=== PATIENT | female | born 1940 | race Caucasian/White ===

== ENCOUNTER 2016-12-06 08:50 | Day surgery (SDC) | payer MEDICARE, OTHER ==
[2016-12-06] MEDS ORDERED: PHENYLEPHRINE 2.5% OPHTH 2 ML DROPS ONE (08:55)
[2016-12-06] MEDS ORDERED: LACTATED RINGERS 1,000 ML IV ONE (09:18)
[2016-12-06] MEDS ORDERED: CYCLOPENTOLATE 1% OPHTH DROPS 2 ML OPTH ONE (09:26)
[2016-12-06] MEDS ORDERED: PROPARACAINE 0.5% OPHTH DROPS 15 ML OPTH ONE ×2 (09:26→10:21)
[2016-12-06] MEDS ORDERED: PHENYLEPHRINE 2.5% OPHTH 2 ML DROPS OPTH ONE (09:27)
[2016-12-06] MEDS ORDERED: KETOROLAC 0.45% OPHTH DROPS OPTH ONE (09:28)
[2016-12-06] MEDS ORDERED: BRIMONIDINE 0.2% OPHTH DROPS 5 ML OPTH ONE (10:20)
[2016-12-06] MEDS ORDERED: EPINEPHrine 1 MG/ML AMP IVP ONE (10:21)
[2016-12-06] MEDS ORDERED: TIMOLOL 0.5% OPHTH DROPS OPTH ONE (10:21)
[2016-12-06] MEDS ORDERED: BSS/LIDOCAINE/EPINEPHRINE 1 ML SYRINGE IO ONE ×2 (10:21)
[2016-12-06] MEDS ORDERED: CHONDR SULF/HYALURONATE SYRINGE IO ONE (10:21)
[2016-12-06] MEDS ORDERED: TRIAMCIN/MOXIFLOX/VANCO 1 ML VIAL IO ONE ×2 (10:22)
[2016-12-06] MEDS ORDERED: MIDAZOLAM 2 MG/2 ML VIAL IVP ONE (10:25)
[2016-12-06 11:11] VITALS: BP 121/51
--- NOTE | 2016-12-08 03:13 | OPERATIVE REPORT ---
DATE OF SURGERY: 12/06/2016 00:00:00 PREOPERATIVE DIAGNOSIS: Visually significant cataract, left eye. This was her first cataract surgery. POSTOPERATIVE DIAGNOSIS: Visually significant cataract, left eye. This was her first cataract surgery . PROCEDURE: Phacoemulsification and posterior chamber intraocular lens implant, left eye. SURGEON: Tio Sparks MD ANESTHESIA: Monitored anesthesia care. COMPLICATIONS: None. OPERATIVE INDICATIONS: This is a 76-year-old woman with progressive vision loss in the left eye due t o 3+ nuclear sclerotic and 1 to 2+ posterior subcapsular cataract. Best corrected visual acuity was 20/40, with glare to 2200 in the left eye. Indications for surgery were overall decrease in vision, difficulty seeing words and closed captions on TV, difficulty driving in low light or at night, diffi culty driving at night because of headlights from other vehicles. She was consented at length concer shane the risks and benefits of cataract surgery, after which she expressed a desire to proceed with s urgery. OPERATIVE PROCEDURE: The patient was taken into operating room #2 and placed under monitored anesthes ia care. A surgical time-out was conducted, confirming correct the patient, correct procedure, and co rrect surgical site. She was given topical anesthesia and then prepped and draped in the usual steril e fashion. The eye was entered at the 6- and 3-o'clock positions. Intracameral shugarcaine was injected into the anterior chamber, followed by Viscoat. A continuous tear curvilinear capsulorrhexis was performed. T he nucleus was hydrodissected and phacoemulsified. The cortex was evacuated using automated infusion aspiration. Provisc was injected into the capsular bag and a 17.0-diopter intraocular lens inserted i nto the bag. Approximately 0.7 mL of a mixture of triamcinolone, moxifloxacin, and vancomycin was in jected subconjunctivally in the superior quadrant for infection and inflammation prophylaxis. I/A was used to evacuate the viscoelastic materials. The eye was inflated to physiologic pressure using a ba lanced salt solution and found to be watertight. The patient was taken from the operating room in good condition and given postoperative instructions. JOB #: [id number] EXT JOB #:[id number]
== END 2016-12-06 08:51 | disposition home or self-care (01) ==
LOC: SDS 08:50
PROVIDERS: ATTEND Ophthalmology
PROC: 08RK3JZ Replacement of Left Lens with Synthetic Substitute, Percutaneous Approach (ICD-10-PCS; principal; 2016-12-06 10:00)
DX: H25.812 Combined forms of age-related cataract, left eye (principal); J45.909 Unspecified asthma, uncomplicated
CPT/HCPCS: 66984; A9270; J7120; V2632

== ENCOUNTER 2017-01-24 08:12 | Day surgery (SDC) | payer MEDICARE, OTHER ==
[~2017-01-24 08:12] MED LIST: BRIMONIDINE 0.2% OPHTH DROPS 5 ML ONE; TIMOLOL 0.5% OPHTH DROPS ONE
[2017-01-24] MEDS ORDERED: PHENYLEPHRINE 2.5% OPHTH 2 ML DROPS ONE (08:45)
[2017-01-24] MEDS ORDERED: KETOROLAC 0.45% OPHTH DROPS ONE (08:45)
[2017-01-24] MEDS ORDERED: PROPARACAINE 0.5% OPHTH DROPS 15 ML ONE (08:46)
[2017-01-24] MEDS ORDERED: CYCLOPENTOLATE 1% OPHTH DROPS 2 ML ONE (08:46)
[2017-01-24] MEDS ORDERED: PHENYLEPHRINE 2.5% OPHTH 2 ML DROPS OPTH ONE (08:56)
[2017-01-24] MEDS ORDERED: CYCLOPENTOLATE 1% OPHTH DROPS 2 ML OPTH ONE (08:56)
[2017-01-24] MEDS ORDERED: KETOROLAC 0.45% OPHTH DROPS OPTH ONE (08:56)
[2017-01-24] MEDS ORDERED: PROPARACAINE 0.5% OPHTH DROPS 15 ML OPTH ONE ×2 (08:56→09:21)
[2017-01-24] MEDS ORDERED: LACTATED RINGERS 500 ML IV ONE (09:10)
[2017-01-24] MEDS ORDERED: BRIMONIDINE 0.2% OPHTH DROPS 5 ML OPTH ONE (09:20)
[2017-01-24] MEDS ORDERED: EPINEPHrine 1 MG/ML AMP IVP ONE (09:20)
[2017-01-24] MEDS ORDERED: TIMOLOL 0.5% OPHTH DROPS OPTH ONE (09:21)
[2017-01-24] MEDS ORDERED: CHONDR SULF/HYALURONATE SYRINGE IO ONE (09:21)
[2017-01-24] MEDS ORDERED: BSS/LIDOCAINE/EPINEPHRINE 1 ML SYRINGE IO ONE ×2 (09:21)
[2017-01-24] MEDS ORDERED: TRIAMCIN/MOXIFLOX/VANCO 1 ML VIAL IO ONE ×2 (09:22)
[2017-01-24] MEDS ORDERED: hydrALAZINE INJ 20 MG/ML VIAL IVP ONE (09:25)
[2017-01-24] MEDS ORDERED: MIDAZOLAM 2 MG/2 ML VIAL IVP ONE (09:25)
[2017-01-24 09:50] VITALS: BP 119/61
--- NOTE | 2017-01-24 10:01 | OPERATIVE REPORT ---
DATE OF SURGERY: 01/24/2017 00:00:00 PREOPERATIVE DIAGNOSIS: Visually significant cataract, right eye. Cataract surgery was performed on the left eye on 12/06/2016. POSTOPERATIVE DIAGNOSIS: Visually significant cataract, right eye. Cataract surgery was performed on the left eye on 12/06/2016. NAME OF PROCEDURE: Phacoemulsification posterior chamber intraocular lens implant, right eye. SURGEON: Tio Sparks MD. ANESTHESIA: Monitored anesthesia care. COMPLICATIONS: None. OPERATIVE INDICATIONS: This is a 76-year-old woman with progressive vision loss in the right eye due to 3+ nuclear sclerotic and 1-2+ posterior subcapsular cataract. Best corrected visual acuity was 20/40 with glare to 20/400 in the right eye. Indications for surgery were overall decrease in vision, difficulty seeing words on the computer screen, difficulty reading, difficulty seeing words and close captions on TV, difficulty seeing street signs, difficulty driving in low light or at night, difficulty driving at night because of head lights from other vehicles, difficulty with glare or bright lights in any situations, difficulty with tracking a golf ball and decreased acuity with firearms. She was consented at length concerning the risks and benefits of cataract surgery, after which she expressed a desire to proceed with surgery. OPERATIVE PROCEDURE: The patient was taken into OR #2 and placed under monitored anesthesia care. A surgical time-out was conducted confirming the correct patient, correct procedure, and correct surgical site. She was given topical anesthesia and prepped and draped in the usual sterile fashion. The eye was entered at the 12 and 9 o'clock positions. Intracameral Shugarcaine was injected into the anterior chamber followed by Viscoat. A continuous tear curvilinear capsulorrhexis was performed. The nucleus was hydrodissected and phacoemulsified. The cortex was evacuated using automated infusion and aspiration (I/A). Provisc was injected into the capsular bag and a 16.0 diopter intraocular lens was inserted into the bag. Approximately 0.7 mL of a mixture of triamcinolone, moxifloxacin, and vancomycin was injected subconjunctivally in the superior quadrant for infection and inflammation prophylaxis. I/A was used to evacuate the viscoelastic materials. The eye was inflated to a physiologic pressure using balanced salt solution and found to be watertight. The patient was taken from the operating room in good condition and given postoperative instructions. JOB #: [id number] EXT JOB #:[id number] KERRY
== END 2017-01-24 08:13 | disposition home or self-care (01) ==
LOC: SDS 08:12
PROVIDERS: ATTEND Ophthalmology
PROC: 08RJ3JZ Replacement of Right Lens with Synthetic Substitute, Percutaneous Approach (ICD-10-PCS; principal; 2017-01-24 09:30)
DX: H25.811 Combined forms of age-related cataract, right eye (principal); J45.909 Unspecified asthma, uncomplicated
CPT/HCPCS: 66984; A9270; J3490; V2632

== ENCOUNTER 2022-02-22 14:08 | Emergency (ER) | payer MEDICARE, OTHER ==
[2022-02-22 14:21] VITALS: BP 169/78
--- NOTE | 2022-02-22 14:44 | XRAY Report ---
PROCEDURE: Shoulder 3 View LT INDICATIONS: GLF, left shoulder pain TECHNIQUE: 3 views of the shoulder were acquired. COMPARISON: None. FINDINGS: Bones: Moderately displaced and mildly angulated comminuted fracture of the humeral head. No suspicio us bony lesions. Visualized ribs appear intact. Soft tissues: No suspicious soft tissue calcifications. IMPRESSION: Humeral head fracture. Reviewed by: Anant Rodrigues MD on 02/22/2022 2:43 PM PDT Approved by: Anant Rodrigues MD on 02/22/2022 2:43 PM PDT Station ID: [id number]
--- NOTE | 2022-02-22 15:49 | ED Physician Documentation ---
PD HPI UPPER EXT INJURY - Stated complaint Stated Complaint: LT SHOULDER INJ - Chief complaint Chief Complaint: Ext Problem - History obtained from History obtained from: Patient - History of Present Illness Location: Left, Shoulder - Additonal information Additional information: Patient is an 81-year-old female who took a misstep in the grocery store parking lot while returning a cart and fell landing on her left shoulder. She reports having pain to the left shoulder. She denies hitting her head or LOC. She does not take a blood thinner. Pain is sharp and worse with movements. She denies pain elsewhere. She has not yet taken anything for pain. 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 HEENT: Cataracts, Tonsil/Adenoidectomy - Present Medications Home Medications: Ambulatory Orders Medication Instructions Recorded Confirmed Albuterol Sulfate [Proair Hfa] 1 puffs PO QID PRN 01/03/15 01/24/17 Lidocaine Patch 5% [Lidoderm Patch] 1 patch TOP DAILY PRN #10 patch 02/22/22 Ondansetron Odt [Zofran] 4 mg TL Q6H PRN #10 tablet 02/22/22 - Allergies Allergies/Adverse Reactions: Allergies Allergy/AdvReac Type Severity Reaction Status Date / Time acetaminophen [From Vicodin] AdvReac Anxiety Verified 12/05/16 11:13 hydrocodone bitartrate * AdvReac Anxiety Verified 12/05/16 11:13 [From Vicodin] - Social History Does the pt smoke?: No Smoking Status: Never smoker Does the pt drink ETOH?: No Does the pt have substance abuse?: No - Immunizations Immunizations are current?: Yes - POLST Patient has POLST: No PD ED PE NORMAL - General General: Alert and oriented X 3, No acute distress, Well developed/nourished - HEENT HEENT: Atraumatic, PERRL, EOMI, Moist mucous membranes - Neck Neck: Supple, no meningeal sign, No bony TTP, C-Spine cleared by NEXUS criteria - Cardiac Cardiac: RRR, No murmur, Strong equal pulses - Respiratory Respiratory: No respiratory distress, Clear bilaterally - Extremities Extremities: Other (Tenderness to the left shoulder with no deformities, normal range of motion at left elbow, no clavicular tenderness, no spinal tenderness, no tenderness to remaining 3 extremities, radial pulses intact, sensation grossly intact) - Neuro Neuro: Alert and oriented X 3, No motor deficit, No sensory deficit, Normal speech Eye Opening: Spontaneous Motor: Obeys Commands Verbal: Oriented GCS Score: 15 Results - Vitals Vitals: Vital Signs - 24 hr 02/22/22 14:17 Temperature 36 C L Heart Rate 83 Respiratory 16 Rate Blood Pressure 169/78 H O2 Saturation 97 Oxygen O2 Source Room air PD MEDICAL DECISION MAKING - ED course Complexity details: reviewed results, re-evaluated patient ED course: Patient evaluated for left shoulder pain after ground-level fall. No head injury. Neurovascularly intact. X-ray demonstrates humeral head fracture. Patient placed into a sling. Discussed need for follow-up with orthopedic surgeon. Patient declined narcotic pain medications. Patient counseled on concerning symptoms to return for. Departure - Departure Disposition: 01 Home, Self Care Clinical Impression: Fracture of humeral head, left, closed Qualifiers: Encounter type: initial encounter Qualified Code(s): S42.292A - Other displaced fracture of upper end of left humerus, initial encounter for closed fracture Condition: Stable Instructions: ED Fx Upper Ext Follow-Up: Dirk Mott MD [Provider Admit Priv/Credential] - Prescriptions: Lidocaine Patch 5% [Lidoderm Patch] 1 patch TOP DAILY PRN #10 patch PRN Reason: pain Ondansetron Odt [Zofran] 4 mg TL Q6H PRN #10 tablet PRN Reason: Nausea / Vomiting Comments: You were evaluated for pain to your left arm after a fall. You have a left humeral head fracture. We have applied a sling which should keep the bones lined up and help it heal. I have also included the name of an orthopedic surgeon we recommend you call to get a close follow-up appointment if you are not able to see your primary care doctor.You have declined any narcotic pain medications. Please use acetaminophen as needed for pain. I have also sent a prescription for lidocaine patches to [facility] in [place]. If you have any worsening symptoms please return to the ER. Discharge Date/Time: 02/22/22 16:30
[2022-02-22] MEDS: ONDANSETRON ODT 4 MG TABLET TL STA (15:59)
[2022-02-22] MEDS: LIDOCAINE PATCH 5% TOP STA (15:59)
[2022-02-22] MEDS: ACETAMINOPHEN 325 MG TABLET PO STA (15:59)
== END 2022-02-22 16:30 | disposition home or self-care (01) ==
LOC: ED 14:08
DX: S42.292A Other displaced fracture of upper end of left humerus, initial encounter for closed fracture (principal); W01.0XXA Fall on same level from slipping, tripping and stumbling without subsequent striking against object, initial encounter; Y92.512 Supermarket, store or market as the place of occurrence of the external cause
CPT/HCPCS: 73030; 99283; A9270; Q0162

== ENCOUNTER 2022-02-27 08:00 | Outpatient (CLI) | payer MEDICARE, OTHER ==
--- NOTE | 2022-02-27 19:51 | XRAY Report ---
PROCEDURE: Elbow 3 View LT INDICATIONS: LEFT ELBOW PAIN TECHNIQUE: 3 views of the elbow were acquired. COMPARISON: None. FINDINGS: Bones: No acute fractures or dislocations. Generalized osteopenia. No suspicious bony lesions. Soft tissues: Soft tissue edema is seen in the posterior subcutaneous tissues. No significant elbow j oint effusion is seen on the lateral view is mildly rotated. No suspicious soft tissue calcifications . IMPRESSION: Nonspecific soft tissue edema overlying the posterior elbow. No acute osseous abnormality. If there i s clinical concern or persistent symptoms, additional imaging such as repeat radiographs or advanced imaging (e.g. CT, MRI) may be helpful for further evaluation. Reviewed by: Spencer Castaneda MD on 02/27/2022 7:49 PM PDT Approved by: Spencer Castaneda MD on 02/27/2022 7:49 PM PDT Station ID: [id number]
== END 2022-02-27 23:59 | disposition home or self-care (01) ==
LOC: DI.WOS 08:00
PROVIDERS: ATTEND Orthopaedic Surgery
DX: M25.522 Pain in left elbow (principal); M79.89 Other specified soft tissue disorders

== ENCOUNTER 2022-05-02 08:24 | Outpatient (CLI) | payer MEDICARE, OTHER ==
[2022-05-02 08:39] LABS: BASOPHILS # (AUTO) 0.1 10^3/uL (0.0-0.1); EOSINOPHILS # (AUTO) 0.4 10^3/uL (0.0-0.7); EOSINOPHILS % (AUTO) 6.2 %; HCT - HEMATOCRIT 43.2 % (37.0-47.0); HGB - HEMOGLOBIN 13.9 g/dL (12.0-16.0); LYMPHOCYTES # (AUTO) 1.9 10^3/uL (1.5-3.5); LYMPHOCYTES % (AUTO) 32.4 %; MEAN CORPUSCULAR HEMOGLOBIN 31.4 pg (27.0-31.0); MEAN CORPUSCULAR HGB CONC 32.2 g/dL (32.0-36.0); MEAN CORPUSCULAR VOLUME 97.5 fL (81.0-99.0); MEAN PLATELET VOLUME 8.9 fL (7.9-10.8); MONOCYTES # (AUTO) 0.5 10^3/uL (0.0-1.0); MONOCYTES % (AUTO) 8.9 %; PLT - PLATELET COUNT 284 10^3/uL (130-450); RED BLOOD COUNT 4.43 10^6/uL (4.20-5.40); RED CELL DISTRIBUTION WIDTH 11.9 % (12.0-15.0); WHITE BLOOD COUNT 5.8 x10^3/uL (4.8-10.8)
[2022-05-02 09:01] LABS: ALBUMIN 4.2 g/dL (3.2-5.5); ALBUMIN/GLOBULIN RATIO 1.2 (1.0-2.2); ALKALINE PHOSPHATASE 63 IU/L (42-121); ALT ALANINE AMINOTRANSFERASE 13 IU/L (10-60); AST ASPARTATE AMINOTRANSFERASE 17 IU/L (10-42); BILIRUBIN,TOTAL 0.7 mg/dL (0.2-1.0); BUN - BLOOD UREA NITROGEN 14 mg/dL (6-20); CALCIUM 9.4 mg/dL (8.5-10.3); CARBON DIOXIDE - CO2 26 mmol/L (21-32); CHLORIDE 103 mmol/L (101-111); CHOL/HDL RATIO 2.8 (<4.4); CHOLESTEROL 250 mg/dL; CREATININE 0.7 mg/dL (0.4-1.0); GFR - MDRD 80 (>89); GLUCOSE 111 mg/dL (70-100); HDL CHOLESTEROL 88 mg/dL; LDL CHOLESTEROL,CALCULATED 146 mg/dL; LDL/HDL RATIO 1.7 (<4.4); POTASSIUM 4.3 mmol/L (3.5-5.0); SODIUM 140 mmol/L (135-145); TOTAL PROTEIN 7.6 g/dL (6.7-8.2); TRIGLYCERIDES 80 mg/dL; VLDL CHOLESTEROL 16 mg/dL
[2022-05-02 09:13] LABS: THYROID STIMULATING HORMONE 1.98 uIU/mL (0.34-5.60)
== END 2022-05-02 08:25 | disposition home or self-care (01) ==
LOC: LAB 08:24
PROVIDERS: ATTEND Nurse Practitioner
DX: I10 Essential (primary) hypertension (principal); Z13.220 Encounter for screening for lipoid disorders; R53.82 Chronic fatigue, unspecified
CPT/HCPCS: 36415; 80053; 80061; 83721; 84443; 85025

== ENCOUNTER 2022-05-10 14:55 | Outpatient (CLI) | payer MEDICARE, OTHER ==
--- NOTE | 2022-05-10 12:11 | XRAY Report ---
PROCEDURE: Shoulder 2 View LT INDICATIONS: LEFT SHOULDER FRACTURE TECHNIQUE: 2 views of the shoulder were acquired. COMPARISON: 03/29/2022 FINDINGS: Bones: There is a healing, moderately anteriorly displaced humeral head and neck fracture. Fragments are in stable position. Fracture planes are less evident on these 2 given views. No suspicious bony l esions. Visualized ribs appear intact. Soft tissues: No suspicious soft tissue calcifications. Calcifications in the left perihilar region . IMPRESSION: 1. No significant change to comminuted, healing left humeral head and neck fracture. Reviewed by: Natalie Dunaway MD on 05/10/2022 12:09 PM PST Approved by: Natalie Dunaway MD on 05/10/2022 12:09 PM PST Station ID: [id number]
== END 2022-05-10 14:56 | disposition home or self-care (01) ==
LOC: DI.WOS 14:55
PROVIDERS: ATTEND Orthopaedic Surgery
DX: S42.202D Unspecified fracture of upper end of left humerus, subsequent encounter for fracture with routine healing (principal)

== ENCOUNTER 2023-04-07 07:23 | Emergency (ER) | payer MEDICARE, OTHER ==
[2023-04-07 07:38] VITALS: BP 185/68; O2SAT 98
[2023-04-07] MEDS ORDERED: LACTULOSE 10 GM /15 ML UDC PO STA (07:53)
[2023-04-07] MEDS ORDERED: SENNA 8.6 MG TABLET PO STA (07:53)
--- NOTE | 2023-04-07 08:35 | ED Physician Documentation ---
PD HPI ABD PAIN - Stated complaint Stated Complaint: ABD PX - Chief complaint Chief Complaint: Abd Pain - History obtained from History obtained from: Patient - Additional information Additional information: 82-year-old female presents stating "I feel very plugged up". 2 weeks ago the patient had a salad that she believes may have been contaminated with something. She had diarrhea for a day, but states she has had difficulty having a bowel movement since. She has been eating jello, pudding, waifer crackers and drinking teas. She tried miralax 5 times but has not had her usual daily bowel movement. She states that she was able to pass a small amount of stool yesterday. She is very concerned that stool is building up and causing a blockage. Review of Systems Constitutional: denies: Fever, Chills Ears: denies: Loss of hearing, Ear pain, Drainage/discharge Nose: denies: Rhinorrhea / runny nose, Foreign Body Throat: denies: Dental pain / toothache, Oral lesions / sores GI: reports: Abdominal Pain, Constipation. 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 HEENT: Cataracts, Tonsil/Adenoidectomy - Present Medications Home Medications: Ambulatory Orders Medication Instructions Recorded Confirmed Albuterol Sulfate [Proair Hfa] 1 puffs PO QID PRN 01/03/15 01/24/17 Lidocaine Patch 5% [Lidoderm Patch] 1 patch TOP DAILY PRN #10 patch 02/22/22 Ondansetron Odt [Zofran] 4 mg TL Q6H PRN #10 tablet 02/22/22 - Allergies Allergies/Adverse Reactions: Allergies Allergy/AdvReac Type Severity Reaction Status Date / Time acetaminophen [From Vicodin] AdvReac Anxiety Verified 12/05/16 11:13 hydrocodone bitartrate * AdvReac Anxiety Verified 12/05/16 11:13 [From Vicodin] - Social History Does the pt smoke?: No Smoking Status: Never smoker Does the pt drink ETOH?: No Does the pt have substance abuse?: No - Immunizations Immunizations are current?: Yes - POLST Patient has POLST: No PD ED PE NORMAL - Vitals Vital signs reviewed: Yes - General General: Alert and oriented X 3, No acute distress, Well developed/nourished - HEENT HEENT: Atraumatic - Cardiac Cardiac: RRR, Strong equal pulses - Respiratory Respiratory: No respiratory distress, Clear bilaterally - Abdomen Abdomen: Soft, Non tender, Non distended - Rectal Rectal: Deferred - Derm Derm: Normal color, Warm and dry, No rash - Extremities Extremities: No deformity, No tenderness to palpate, Normal ROM s pain, No edema - Neuro Neuro: Alert and oriented X 3, engagement lead 2-12 intact, No motor deficit, Normal speech - Psych Psych: Normal mood, Normal affect Results - Vitals Vitals: Vital Signs - 24 hr 04/07/23 07:29 Temperature 36.8 C Heart Rate 89 Respiratory 18 Rate Blood Pressure 185/68 H O2 Saturation 98 Oxygen O2 Source Room air PD Medical Decision Making - ED course Complexity details: reviewed old records, reviewed results, re-evaluated patient, considered differential, d/w patient ED course: 2 weeks of constipation following diarrheal episode. Abdomen soft. CT shows no constipation or obstruction. Patient's symptoms likely contributed to by her diet of pudding, jello, and crackers. Patient informed of her CT results, she is relieved to know there is no obstruction or blockage present. Patient advised to increase fiber intake and she may take miralax daily with goal of one soft BM daily. Departure - Departure Disposition: 01 Home, Self Care Clinical Impression: Constipation Qualifiers: Constipation type: unspecified constipation type Qualified Code(s): K59.00 - Constipation, unspecified Condition: Stable Instructions: Diet High Fiber, ED Constipation Forms: PCP List Discharge Date/Time: 04/07/23 09:10
--- NOTE | 2023-04-07 08:58 | CT Report ---
PROCEDURE: ABDOMEN/PELVIS WO INDICATIONS: abd pain, no BM x2wks TECHNIQUE: A CT scan of the abdomen and pelvis was performed without the use of intravenous contrast. Images we re recorded and evaluated at appropriate window settings. Reformats: coronal and sagittal. For radiat ion dose reduction, the following was used: automated exposure control, adjustment of mA and/or kV ac cording to patient size. COMPARISON: None. FINDINGS: Image quality: Excellent. Lung bases and heart: Unremarkable. Liver: No solid mass. Gallbladder and biliary tree: Dependent stones are present without wall thickening. Spleen: No splenomegaly. Pancreas: No pancreatic ductal dilation. Adrenals: No adrenal nodule. Kidneys and ureters: Kidneys are atrophic bilaterally with prominent parapelvic cysts. Stones. Bowel and peritoneum: No bowel distension. No pathologic free fluid. Diverticular present. There is a very small focus of minimal descending bowel thickening. Minimal to mild scattered stool. Lymph nodes: No central or retroperitoneal adenopathy. Vessels: No infrarenal aortic aneurysm. PELVIS Reproductive organs: Calcifications are present within the uterus most suggestive of fibroids. Bladder: No wall thickness, accounting for underdistention. Pelvic lymph nodes: No pelvic adenopathy by size criteria. Bones: No aggressive osseous abnormality. Other: No significant ventral or inguinal hernia. IMPRESSION: Cholelithiasis without cholecystitis. Small focus of questionable descending bowel wall thickening. While this is suspected to be related t o incomplete distention given lack of inflammatory change. Very early developing colitis cannot be de finitively excluded. No visualized constipation. Reviewed by: Dai Dye MD on 04/07/2023 8:57 AM [facility] Approved by: Dai Dye MD on 04/07/2023 8:57 AM PST Station ID: [id number]
== END 2023-04-07 09:10 | disposition home or self-care (01) ==
LOC: ED 07:23
DX: K59.00 Constipation, unspecified (principal)
CPT/HCPCS: 74176; 99282; 99284; A9270

== ENCOUNTER 2023-08-05 05:08 | Emergency (ER) | payer MEDICARE, OTHER ==
--- NOTE | 2023-08-05 05:40 | ED Physician Documentation ---
PD HPI DYSPNEA - Stated complaint Stated Complaint: SOA - Chief complaint Chief Complaint: Resp - History obtained from History obtained from: Patient - Additional information Additional information: The patient comes to the emergency department chief complaint of dyspnea and cough. She has been out of her Flovent inhaler for the last approximately 3 weeks after letting the prescription run out by accident. The patient was not able to get a refill because she did not order it in time and so she has only had her albuterol. The patient states she has a chronic cough but that it seems worse over the last week since she has had a runny nose. The patient states she feels anxious and her chest but does not have any chest pain. She denies any swelling in her lower extremities or calf pain. No other complaints at this time. 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 HEENT: Cataracts, Tonsil/Adenoidectomy - Present Medications Home Medications: Ambulatory Orders Medication Instructions Recorded Confirmed Fluticasone Propionate 12 gm IH DAILY #1 each 08/05/23 [Fluticasone Propionate Hfa] - Allergies Allergies/Adverse Reactions: Allergies Allergy/AdvReac Type Severity Reaction Status Date / Time acetaminophen [From Vicodin] AdvReac Anxiety Verified 08/05/23 05:16 hydrocodone bitartrate * AdvReac Anxiety Verified 08/05/23 05:16 [From Vicodin] - Social History Does the pt smoke?: No Smoking Status: Never smoker Does the pt drink ETOH?: No Does the pt have substance abuse?: No - Immunizations Immunizations are current?: Yes - POLST Patient has POLST: No PD ED PE NORMAL - Vitals Vital signs reviewed: Yes - General General: Alert and oriented X 3, No acute distress, Well developed/nourished - HEENT HEENT: Atraumatic, PERRL, EOMI, Moist mucous membranes - Neck Neck: Supple, no meningeal sign - Cardiac Cardiac: RRR, No murmur, Strong equal pulses - Respiratory Respiratory: No respiratory distress, Other (Moderate wheezes and rhonchi on the left and mild on the right. Full air movement into bilateral lung ching, however.) - Derm Derm: Normal color, Warm and dry, No rash - Extremities Extremities: No deformity, No edema, No calf tenderness / cord - Neuro Neuro: Other (Grossly intact) - Psych Psych: Normal mood, Normal affect Results - Vitals Vitals: Vital Signs - 24 hr 08/05/23 08/05/23 08/05/23 05:16 05:40 06:09 Temperature 36.2 C L Heart Rate 96 83 67 Respiratory 20 18 18 Rate Blood Pressure 199/83 H 178/62 H O2 Saturation 97 96 Oxygen O2 Source Room air - Rads (name of study) Chest x-ray Relevant Findings:: Final report received, See rad report (Negative) PD Medical Decision Making - ED course Complexity details: reviewed results, re-evaluated patient, considered differential, d/w patient ED course: The patient was worked up a chest x-ray which was negative. A respiratory PCR panel is pending at this time. She was treated with a DuoNeb which did improve her symptoms, which were already fairly mild. I have advised the patient that I will refill her Flovent but it is very important that she does not let it lapse like she did this time. Patient is agreeable to the plan. She has an appointment coming up with her primary on August 27 and can follow-up then. We have discussed the usual indications for return to the emergency department. Departure - Departure Disposition: 01 Home, Self Care Clinical Impression: Asthma Qualifiers: Asthma severity: mild Asthma persistence: intermittent Asthma complication type : with acute exacerbation Qualified Code(s): J45.21 - Mild intermittent asthma with (acute) exacerbation Condition: Stable Instructions: Asthma Dc Prescriptions: Fluticasone Propionate [Fluticasone Propionate Hfa] 12 gm IH DAILY #1 each Comments: Your chest x-ray looks good. Your viral panel is pending at this time and takes some time to come back. If there is anything significantly positive on your panel, we will let you know. For now, it is important that you get your Flovent inhaler refilled. I have sent a prescription for this to the [facility] pharmacy in [place], your pharmacy of choice on record. Please pick this up today and get back on it. When you see your primary doctor in a few weeks, make sure that you talk to her about a recurring prescription for the Flovent. Please make sure that you pick this up on time so you do not lapse on your refills again in the future. You may use your albuterol inhaler also, as needed. Forms: PCP List
[2023-08-05] MEDS: IPRATROPIUM/ALBUTEROL 3 ML NEB INH STA (05:42)
[2023-08-05 06:17] VITALS: BP 178/62; O2SAT 96
[2023-08-05 06:31] LABS: CORONAVIRUS 229E-RESP PCR NOT DETECTED; CORONAVIRUS HKU1-RESP PCR NOT DETECTED; CORONAVIRUS NL63-RESP PCR NOT DETECTED; CORONAVIRUS OC43-RESP PCR NOT DETECTED; HUMAN METAPNEUMOVIRUS NOT DETECTED; INFLUENZA A- RESP PCR PANEL NOT DETECTED; INFLUENZA B - RESP PCR PANEL NOT DETECTED; PARAINFLUENZA VIRUS 1 NOT DETECTED; PARAINFLUENZA VIRUS 2 NOT DETECTED; PARAINFLUENZA VIRUS 3 NOT DETECTED; PARAINFLUENZA VIRUS 4 NOT DETECTED; RHINOVIRUS/ENTEROVIRUS NOT DETECTED; RSV- RESP PCR PANEL NOT DETECTED; SARS-CoV-2 -RESP PCR PANEL NOT DETECTED
[2023-08-05 06:32] LABS: B. PARAPERTUSSIS- RESP PCR PAN NOT DETECTED; B. PERTUSSIS- RESP PCR PANEL NOT DETECTED; C. PNEUMONIAE- RESP PCR PANEL NOT DETECTED; M. PNEUMONIAE- RESP PCR PANEL NOT DETECTED
--- NOTE | 2023-08-05 08:32 | XRAY Report ---
PROCEDURE: Chest 1V INDICATIONS: dyspnea TECHNIQUE: One view of the chest was acquired. COMPARISON: None. FINDINGS: Surgical changes and devices: None. Lungs and pleura: No pleural effusions or pneumothorax. Lungs are clear. Mediastinum: Mediastinal contours appear normal. Heart size is normal. Bones and chest wall: No suspicious bony lesions. Overlying soft tissues appear unremarkable. Hea ling left humeral neck fracture. IMPRESSION: No acute cardiopulmonary process. Findings are concordant with preliminary interpretation provided by [facility]. Reviewed by: Boogie Villa MD on 08/05/2023 8:30 AM PDT Approved by: Boogie Villa MD on 08/05/2023 8:30 AM PDT Station ID: [id number]
== END 2023-08-05 06:32 | disposition home or self-care (01) ==
LOC: ED 05:08
DX: J45.21 Mild intermittent asthma with (acute) exacerbation (principal); Z91.128 Patient's intentional underdosing of medication regimen for other reason; Z11.52 Encounter for screening for COVID-19
CPT/HCPCS: 87633; 94640; 99284

== ENCOUNTER 2023-08-07 22:36 | Outpatient (CLI) | payer MEDICARE, OTHER | END 2023-08-07 22:37 | disposition critical access hospital (66) | LOC: EMS 22:36 | DX: R06.00 Dyspnea, unspecified (principal); R07.9 Chest pain, unspecified; M54.9 Dorsalgia, unspecified | CPT/HCPCS: A0425; A0427 ==

== ENCOUNTER 2023-08-07 22:53 | Emergency (ER) | payer MEDICARE, OTHER ==
[2023-08-07 23:40] LABS: BASOPHILS # (AUTO) 0.1 10^3/uL (0.0-0.1); BASOPHILS % (AUTO) 1.3 %; EOSINOPHILS # (AUTO) 0.5 10^3/uL (0.0-0.7); EOSINOPHILS % (AUTO) 5.6 %; HCT - HEMATOCRIT 41.1 % (37.0-47.0); HGB - HEMOGLOBIN 13.5 g/dL (12.0-16.0); LYMPHOCYTES # (AUTO) 3.5 10^3/uL (1.5-3.5); LYMPHOCYTES % (AUTO) 39.2 %; MEAN CORPUSCULAR HEMOGLOBIN 31.9 pg (27.0-31.0); MEAN CORPUSCULAR HGB CONC 32.8 g/dL (32.0-36.0); MEAN CORPUSCULAR VOLUME 97.2 fL (81.0-99.0); MEAN PLATELET VOLUME 9.3 fL (7.9-10.8); MONOCYTES # (AUTO) 0.9 10^3/uL (0.0-1.0); MONOCYTES % (AUTO) 10.1 %; NEUTROPHILS # (AUTO) 3.8 10^3/uL (1.5-6.6); NEUTROPHILS % (AUTO) 43.6 %; PLT - PLATELET COUNT 269 10^3/uL (130-450); RED BLOOD COUNT 4.23 10^6/uL (4.20-5.40); RED CELL DISTRIBUTION WIDTH 11.8 % (12.0-15.0); WHITE BLOOD COUNT 8.8 x10^3/uL (4.8-10.8)
[2023-08-07 23:49] LABS: VBG BASE EXCESS -1.4 mmol/L (-2 - +2); VBG HCO3 22.1 mmol/L (23-28); VBG OXYGEN SATURATION 80.9 % (60-80); VBG PH 7.431 (7.31-7.41); VBG TOTAL CO2 23.2 mmol/L (24-29)
[2023-08-07] MEDS ORDERED: iohexoL-300 100 ML VIAL ONE (23:50)
[2023-08-07 23:58] LABS: TROPONIN I HIGH SENSITIVITY 9.5 ng/L (2.3-14.8)
[2023-08-07 23:59] LABS: ALBUMIN 4.1 g/dL (3.2-5.5); ALBUMIN/GLOBULIN RATIO 1.5 (1.0-2.2); BILIRUBIN,TOTAL 0.7 mg/dL (0.2-1.0); CALCIUM 9.5 mg/dL (8.5-10.3); CREATININE 0.7 mg/dL (0.6-1.3); POTASSIUM 3.3 mmol/L (3.5-4.5); TOTAL PROTEIN 6.9 g/dL (6.4-8.9)
--- NOTE | 2023-08-08 00:02 | ED Physician Documentation ---
History of Present Illness - Stated complaint Stated Complaint: BACK PX/DIFF BREATHING - Chief complaint Chief Complaint: Back Pain - History obtained from History obtained from: Patient - Additonal information Additional information: 82yF with pmh asthma p/w soa X 3 weeks, worsening tonight and not improving with duoneb en route with ems. denies fever, cough, hemoptysis, leg swelling, n/v. no chest pain. 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: Other HEENT: Cataracts, Tonsil/Adenoidectomy - Present Medications Home Medications: Ambulatory Orders Medication Instructions Recorded Confirmed Fluticasone Propionate 12 gm IH DAILY #1 each 08/05/23 [Fluticasone Propionate Hfa] - Allergies Allergies/Adverse Reactions: Allergies Allergy/AdvReac Type Severity Reaction Status Date / Time acetaminophen [From Vicodin] AdvReac Anxiety Verified 08/07/23 23:05 hydrocodone bitartrate * AdvReac Anxiety Verified 08/07/23 23:05 [From Vicodin] - Social History Does the pt smoke?: No Smoking Status: Never smoker Does the pt drink ETOH?: No Does the pt have substance abuse?: No - Immunizations Immunizations are current?: Yes - POLST Patient has POLST: No PD ED PE NORMAL - Vitals Vital signs reviewed: Yes - General General: Alert and oriented X 3, No acute distress, Well developed/nourished - HEENT HEENT: Atraumatic, PERRL, EOMI, Moist mucous membranes, Pharynx benign - Neck Neck: Supple, no meningeal sign - Cardiac Cardiac: RRR - Respiratory Respiratory: Other (coarse BL breath sounds. no increased wob) - Derm Derm: Normal color, Warm and dry - Extremities Extremities: No edema Results - Vitals Vitals: Vital Signs - 24 hr 08/07/23 08/07/23 08/08/23 22:52 23:30 00:00 Temperature 36.5 C Heart Rate 108 H 107 H 98 Respiratory 16 25 H 21 Rate Blood Pressure 188/82 H 161/66 H 173/73 H O2 Saturation 93 93 08/08/23 08/08/23 08/08/23 00:30 01:00 01:30 Temperature Heart Rate 97 88 90 Respiratory 18 17 18 Rate Blood Pressure 148/68 H 143/71 H O2 Saturation 93 96 92 Oxygen O2 Source Room air - EKG (time done) 2355 EKG releavant findings:: EKG personally interpreted by author of this note. Relevant findings are: Rate: Rate (enter#) (93) Rhythm: NSR [place]: LAD Intervals: Normal RI QRS: Normal Ischemia: Normal ST segments - Labs Labs: Laboratory Tests 08/07/23 08/07/23 08/07/23 23:12 23:12 23:12 WBC 8.8 RBC 4.23 Hgb 13.5 Hct 41.1 MCV 97.2 MCH 31.9 H MCHC 32.8 RDW 11.8 L Plt Count 269 MPV 9.3 Neut # (Auto) 3.8 Lymph # (Auto) 3.5 [place] # (Auto) 0.9 Eos # (Auto) 0.5 Baso # (Auto) 0.1 Absolute Nucleated RBC 0.00 Nucleated RBC % 0.0 VBG pH VBG pCO2 VBG pO2 VBG HCO3 VBG Total CO2 VBG O2 Saturation VBG Base Excess Sodium 138 Potassium 3.3 L Chloride 104 Carbon Dioxide 23 Anion Gap 11.0 BUN 13 Creatinine 0.7 Estimated GFR (MDRD) 80 L Glucose 113 H Calcium 9.5 Total Bilirubin 0.7 AST 17 ALT 11 Alkaline Phosphatase 55 Troponin I High Sens 9.5 B-Natriuretic Peptide 36 Total Protein 6.9 Albumin 4.1 Globulin 2.8 Albumin/Globulin Ratio 1.5 Lipase 21 Nasal Adenovirus (PCR) Nasal B. parapertussis DNA (PCR) Nasal Coronavir 229E PCR Nasal Coronavir HKU1 PCR Nasal Coronavir NL63 PCR Nasal Coronavir OC43 PCR Nasal Enterovir/Rhinovir PCR Nasal Influenza B PCR Nasal Influenza A PCR Nasal Parainfluen 1 PCR Nasal Parainfluen 2 PCR Nasal Parainfluen 3 PCR Nasal Parainfluen 4 PCR Nasal RSV (PCR) Nasal B.pertussis DNA PCR Nasal C.pneumoniae (PCR) René Human Metapneumo PCR Nasal M.pneumoniae (PCR) Nasal SARS-CoV-2 (PCR) 08/07/23 08/07/23 23:44 23:50 WBC RBC Hgb Hct MCV MCH MCHC RDW Plt Count MPV Neut # (Auto) Lymph # (Auto) [place] # (Auto) Eos # (Auto) Baso # (Auto) Absolute Nucleated RBC Nucleated RBC % VBG pH 7.431 H VBG pCO2 34.0 L VBG pO2 42.0 VBG HCO3 22.1 L VBG Total CO2 23.2 L VBG O2 Saturation 80.9 H VBG Base Excess -1.4 Sodium Potassium Chloride Carbon Dioxide Anion Gap BUN Creatinine Estimated GFR (MDRD) Glucose Calcium Total Bilirubin AST ALT Alkaline Phosphatase Troponin I High Sens B-Natriuretic Peptide Total Protein Albumin Globulin Albumin/Globulin Ratio Lipase Nasal Adenovirus (PCR) NOT DETECTED Nasal B. parapertussis DNA (PCR) NOT DETECTED Nasal Coronavir 229E PCR NOT DETECTED Nasal Coronavir HKU1 PCR NOT DETECTED Nasal Coronavir NL63 PCR NOT DETECTED Nasal Coronavir OC43 PCR NOT DETECTED Nasal Enterovir/Rhinovir PCR NOT DETECTED Nasal Influenza B PCR NOT DETECTED Nasal Influenza A PCR NOT DETECTED Nasal Parainfluen 1 PCR NOT DETECTED Nasal Parainfluen 2 PCR NOT DETECTED Nasal Parainfluen 3 PCR NOT DETECTED Nasal Parainfluen 4 PCR NOT DETECTED Nasal RSV (PCR) NOT DETECTED Nasal B.pertussis DNA PCR NOT DETECTED Nasal C.pneumoniae (PCR) NOT DETECTED René Human Metapneumo PCR NOT DETECTED Nasal M.pneumoniae (PCR) NOT DETECTED Nasal SARS-CoV-2 (PCR) NOT DETECTED PD Medical Decision Making - ED course ED course: 82yF presents to the ED with soa, found to have coarse breath sounds but no michael wheezing on exam. labwork including cbc, abdominal panel, vbg, rvp uncovered no acute issues. cta chest to r/o PE was negative. discussed incidental findings. patient feeling better. return precautions given. Departure - Departure Disposition: 01 Home, Self Care Clinical Impression: Renal cyst, Gallstones, Shortness of breath Condition: Stable Instructions: Gallstones Dc, ED Dyspnea Shortness of Breath Follow-Up: Hugo Garcia MD [Provider Admit Priv/Credential] - Comments: You were seen in the emergency department for shortness of breath. Your CT of the chest showed no pulmonary embolism (blood clot in lung), pneumonia or other dangerous issues. Your labwork looked okay. You do have simple cysts (little balloon-like pouches) on your left kidney. This is not dangerous and requires no follow up. You have gallstones. If this is not bothering you, it also does not require follow up. If you have abdominal pain in the right upper abdomen after eating then you may need to speak with a surgeon about options for follow up. Referral provided. Please follow-up with your primary care provider and return to the emergency department if you have any new or worsening symptoms or other concerns. Forms: PCP List
[2023-08-08] MEDS: iohexoL-300 100 ML VIAL IVP ONE (00:22)
--- NOTE | 2023-08-08 00:37 | CT Report ---
PROCEDURE: Angio Chest INDICATIONS: hypoxia, soa X 3 weeks CONTRAST: Omni 300, 80mls TECHNIQUE: After the administration of intravenous contrast, 2 mm axial images were acquired from the pulmonary apices to the posterior costophrenic angles during the arterial phase. In addition, 1 mm lung kernel and 5 mm soft tissue kernel reconstructions were performed. 3-dimensional coronal oblique maximum int ensity projection (MIP) reformats, 8 mm axial MIP, and 5 mm coronal and sagittal MPR reformats were t hen performed through the thorax. For radiation dose reduction, the following was used: automated exp osure control, adjustment of mA and/or kV according to patient size. COMPARISON: Chest radiograph 08/05/2023. FINDINGS: Image quality: Excellent. Large vessels: No filling defects within the opacified pulmonary arteries, accounting for motion and contrast timing. No evidence of acute aortic syndrome or aortic aneurysm. Lungs and pleura: No consolidation. No pleural effusions. No pneumothorax. No suspicious pulmonary n odules which require follow up. Mediastinum: Heart size is normal. No pericardial effusion. No large vessel abnormality. No mediastin al adenopathy by size criteria. Chest wall and lower neck: Thyroid is unremarkable. No axillary or supraclavicular adenopathy by size . Bones: No aggressive osseous abnormality. Upper Abdomen: Small calcified gallstones. Simple appearing parapelvic left renal cysts.. IMPRESSION: 1.No acute pulmonary embolus. No acute abnormality identified in the chest. 2.Cholelithiasis. Reviewed by: Spencer Castaneda MD on 08/08/2023 12:36 AM PDT Approved by: Spencer Castaneda MD on 08/08/2023 12:36 AM PDT Station ID: [id number]
[2023-08-08 01:00] LABS: B. PARAPERTUSSIS- RESP PCR PAN NOT DETECTED; B. PERTUSSIS- RESP PCR PANEL NOT DETECTED; C. PNEUMONIAE- RESP PCR PANEL NOT DETECTED; CORONAVIRUS 229E-RESP PCR NOT DETECTED; CORONAVIRUS HKU1-RESP PCR NOT DETECTED; CORONAVIRUS NL63-RESP PCR NOT DETECTED; CORONAVIRUS OC43-RESP PCR NOT DETECTED; HUMAN METAPNEUMOVIRUS NOT DETECTED; INFLUENZA A- RESP PCR PANEL NOT DETECTED; INFLUENZA B - RESP PCR PANEL NOT DETECTED; M. PNEUMONIAE- RESP PCR PANEL NOT DETECTED; PARAINFLUENZA VIRUS 1 NOT DETECTED; PARAINFLUENZA VIRUS 2 NOT DETECTED; PARAINFLUENZA VIRUS 3 NOT DETECTED; PARAINFLUENZA VIRUS 4 NOT DETECTED; RHINOVIRUS/ENTEROVIRUS NOT DETECTED; RSV- RESP PCR PANEL NOT DETECTED; SARS-CoV-2 -RESP PCR PANEL NOT DETECTED
[2023-08-08] MEDS: SODIUM CHLORIDE 0.9% 250 ML IV STA (02:50)
[2023-08-08 02:56] VITALS: O2SAT 94
[2023-08-08 03:16] VITALS: BP 164/78
== END 2023-08-08 03:25 | disposition home or self-care (01) ==
LOC: EDUNIT# → ED 22:53
DX: N28.1 Cyst of kidney, acquired (principal); K80.20 Calculus of gallbladder without cholecystitis without obstruction
CPT/HCPCS: 36415; 71275; 80053; 82803; 83690; 83880; 84484; 85025; 87633; 93005; 99284; Q9967; 85379

== ENCOUNTER 2023-08-14 21:55 | Outpatient (CLI) | payer MEDICARE, OTHER | END 2023-08-14 21:56 | disposition critical access hospital (66) | LOC: EMS 21:55 | DX: R25.2 Cramp and spasm (principal); R05.9 Cough, unspecified; I10 Essential (primary) hypertension | CPT/HCPCS: A0425; A0429 ==

== ENCOUNTER 2023-08-14 22:12 | Emergency (ER) | payer MEDICARE, OTHER ==
[2023-08-14 22:25] VITALS: BP 154/106; O2SAT 96
--- NOTE | 2023-08-14 22:42 | ED Physician Documentation ---
PD HPI BACK PAIN - Stated complaint Stated Complaint: BACK SPASMS - Chief complaint Chief Complaint: Back Pain - History obtained from History obtained from: Patient - Additional information Additional information: 82-year-old woman who lives alone with history of hypertension presents by ambulance for the evaluation of back spasms. She states for the last week or so when she lays flat she gets a spasm in her back and she has to sit up. Then she is scared to lay flat again because of the severity of it and cannot sleep sitting up. She has not tried anything for it. Currently has no back pain. She was seen by my partner a week ago with complaints of back pain and difficulty breathing. She had an extensive workup at that time with EKG, lab work, CT angiography of the chest. Subsequent findings were only positive for gallstones and she was referred to surgery. She denies chest pain, shortness of breath now, weakness, numbness, or tingling in the legs, saddle anesthesia, fevers, incontinence. 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: Other HEENT: Cataracts, Tonsil/Adenoidectomy - Present Medications Home Medications: Ambulatory Orders Medication Instructions Recorded Confirmed Fluticasone Propionate 12 gm IH DAILY #1 each 08/05/23 [Fluticasone Propionate Hfa] Tizanidine HCl 2 mg PO Q8H PRN #20 tablet 08/14/23 - Allergies Allergies/Adverse Reactions: Allergies Allergy/AdvReac Type Severity Reaction Status Date / Time acetaminophen [From Vicodin] AdvReac Anxiety Verified 08/14/23 22:20 hydrocodone bitartrate * AdvReac Anxiety Verified 08/14/23 22:20 [From Vicodin] - Social History Does the pt smoke?: No Smoking Status: Never smoker Does the pt drink ETOH?: No Does the pt have substance abuse?: No - Immunizations Immunizations are current?: Yes - POLST Patient has POLST: No PD ED PE NORMAL - Vitals Vital signs reviewed: Yes - General General: Alert and oriented X 3, No acute distress, Other (She appears very comfortable and walks from the EMS gurney to the [place] [facility] without distress. She is changing position without any pain.) - Neck Neck: Supple, no meningeal sign, No bony TTP - Cardiac Cardiac: RRR, No murmur - Respiratory Respiratory: No respiratory distress, Clear bilaterally - Abdomen Abdomen: Non tender - Back Back: Other (I am unable to reproduce her back pain with palpation of the back. There is no spinal tenderness.) - Neuro Neuro: Alert and oriented X 3, Normal speech Eye Opening: Spontaneous Motor: Obeys Commands Verbal: Oriented GCS Score: 15 - Psych Psych: Normal mood, Normal affect Results - Vitals Vitals: Vital Signs - 24 hr 08/14/23 22:16 Temperature 36.3 C L Heart Rate 81 Respiratory 20 Rate Blood Pressure 154/106 H O2 Saturation 96 Oxygen O2 Source Room air PD Medical Decision Making - ED course ED course: She presents with intermittent back spasms, she is not having any pain now. Has not tried anything for it. At this point she appears very comfortable and has no pain with ambulation or change of position. She has me to lay her flat while she was talking to show me the back spasms and we did lay her flat but she did not have a spasm during that evaluation. My suspicion for serious etiology is very low especially given the extensive workup done a week ago. Plan to administer 2 mg of tizanidine and Tylenol, recheck electrolytes and EKG and observe for a bit. Departure - Departure Clinical Impression: Back spasm Condition: Good Record reviewed to determine appropriate education?: Yes Instructions: ED Spasm Back No Trauma Prescriptions: Tizanidine HCl 2 mg PO Q8H PRN #20 tablet PRN Reason: Spasms Comments: You were seen tonight for back spasms. You were administered tizanidine and Tylenol. You should continue to take Tylenol as needed, 2 extra strength tablets every 8 hours when you are having spasms. The tizanidine is a muscle relaxer and will help as well but may be slightly sedating. Call your doctor to arrange a follow-up appointment, make the next available appointment. In the interim, return anytime if worse or if new symptoms develop.
[2023-08-14 23:07] LABS: CALCIUM 9.3 mg/dL (8.5-10.3); CREATININE 0.8 mg/dL (0.6-1.3)
--- NOTE | 2023-08-14 23:07 | ED Physician Documentation ---
ED Addendum - Addendum Addendum: 08/14/23 23:19 Patient endorsed to me by Dr. Thorne pending reevaluation s/p flexeril and tylenol. patient was c/o back spasm/pain when lying flat. she is now feeling better and ready to go home. EKG at 23:01 was nsr with rate 76, normal intervals and no ST or T wave changes concerning for active cardiac disease. Return precautions given. plan to f/u with pcp. Impression 1. back spasm Disposition home Condition stable 08/14/23 23:20
[2023-08-14] MEDS: tiZANidine 4 MG TABLET PO STA (23:09)
[2023-08-14] MEDS: ACETAMINOPHEN 500 MG TABLET PO STA (23:09)
== END 2023-08-15 00:14 | disposition home or self-care (01) ==
LOC: EDUNIT# → ED 22:12
DX: M62.830 Muscle spasm of back (principal)
CPT/HCPCS: 36415; 80048; 93005; 99283; A9270

== ENCOUNTER 2023-08-29 05:32 | Emergency (ER) | payer MEDICARE, OTHER ==
--- NOTE | 2023-08-29 06:16 | ED Physician Documentation ---
PD HPI HEADACHE - Stated complaint Stated Complaint: FACE/HEAD NUMBNESS - Chief complaint Chief Complaint: Heent - History obtained from History obtained from: Patient - History of Present Illness Worst headache ever?: No: Worst headache ever? - Additional information Additional information: HPI from patient. Patient's HPI is quite vague. She only c/o diffuse head "tight" sensation (she specifically vocalizes the adjective "tight" repeatedly even when I ask for her to try any other descriptors. She denies pain, denies CAPONE, denies visual changes, denies weakness/numbness. She says this has been of gradual onset over past several days , initially bifrontal and constant, but gradually spreading to bilateral parietal skull, then bilateral posterior/occipital region. Denies h/o similar discomfort; she repeatedly and confidently denies CAPONE and/or pain (I occasionally mention CAPONE, as in "how long have you had this headache", and she quickly, consistency corrects me in telling me there is neither pain nor headache per se, just a "tight" sensation bilaterally all around her head. Denies visual changes, nausea, vomiting, fever. Denies injury denies h/o similar symptoms. She wonders if it is due to recent new prescriptions (fluticasone, losartran. Review of Systems Constitutional: denies: Fever, Chills, Sweats Eyes: reports: Reviewed and negative Cardiac: reports: Reviewed and negative Respiratory: reports: Reviewed and negative GI: reports: Reviewed and negative Neurologic: denies: Generalized weakness, Focal weakness, Numbness, Confused, Altered mental status PD PAST MEDICAL HISTORY - Past Medical History Past Medical History: Yes Cardiovascular: None Respiratory: Asthma Endocrine/Autoimmune: None GI: Ulcers : None HEENT: None Psych: Anxiety, Claustrophobia Musculoskeletal: Osteoarthritis Derm: None - Past Surgical History Past Surgical History: Yes General: Appendectomy, Colonoscopy, EGD Ortho: Carpal Tunnel 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: Other HEENT: Cataracts, Tonsil/Adenoidectomy - Present Medications Home Medications: Ambulatory Orders Medication Instructions Recorded Confirmed Fluticasone Propionate 12 gm IH DAILY #1 each 08/05/23 08/29/23 [Fluticasone Propionate Hfa] Tizanidine HCl 2 mg PO Q8H PRN #20 tablet 08/14/23 08/29/23 Amox/Clav 875/125 [Augmentin 1 tablet PO Q12H 7 Days #14 tablet 08/29/23 875/125 Tab] Losartan Potassium 25 mg PO DAILY 08/29/23 08/29/23 - Allergies Allergies/Adverse Reactions: Allergies Allergy/AdvReac Type Severity Reaction Status Date / Time acetaminophen [From Vicodin] AdvReac Anxiety Verified 08/29/23 06:27 hydrocodone bitartrate * AdvReac Anxiety Verified 08/29/23 06:27 [From Vicodin] - Social History Does the pt smoke?: No Smoking Status: Never smoker Does the pt drink ETOH?: No Does the pt have substance abuse?: No - Immunizations Immunizations are current?: Yes - POLST Patient has POLST: No PD ED PE NORMAL - Vitals Vital signs reviewed: Yes - General General: Alert and oriented X 3, No acute distress, Well developed/nourished - HEENT HEENT: PERRL, EOMI, Moist mucous membranes - Neck Neck: Supple, no meningeal sign, No bony TTP - Cardiac Cardiac: RRR, No murmur - Respiratory Respiratory: No respiratory distress, Clear bilaterally - Neuro Neuro: Alert and oriented X 3, project coordinator rn 2-12 intact, No motor deficit, No sensory deficit, Normal speech Motor: Obeys Commands Verbal: Oriented Results - Vitals Vitals: Vital Signs - 24 hr 08/29/23 08/29/23 05:49 05:53 Temperature 36.6 C Heart Rate 89 72 Respiratory 19 16 Rate Blood Pressure 158/74 H 158/76 H O2 Saturation 98 96 Oxygen O2 Source Room air - Rads (name of study) CTH Relevant Findings:: Prelim report reviewed, See rad report PD Medical Decision Making - ED course Complexity details: reviewed results, re-evaluated patient, considered differential, d/w patient ED course: Unremarkable CTH, performed to investigate possible catastrophic diagnoses such as ICH, cerebral mass. There are no concerning nor diagnostic findings on phillip's CTH. Results d/w patient. The only potentially contributory finding on phillip's CTH is mild ethmoid sinus inflammatory changes for which she is given PO augment and one-week course of same (e-prescribed to her pharmacy of choice). Results d/w patient. Although findings s/o mild sinusitis found on CT, I explained to her that I do not have much confidence that this is causing her symptoms, although it is difficult to determine further testing/treatment based on sole c/o of global head "tightness" , particularly when she repeatedly denies CAPONE or any other pain, visual changes, or any other neurologic abnormality.; I advised her to contacdt PCP to arrange for next available appointment for reevaluation. In the meantime, based on CT findings, I am e-prescribing augmentin for possible sinusitis, first dose given in ED. Return precautions reviewed Departure - Departure Disposition: Home, Self Care Clinical Impression: Sinusitis Condition: Good Instructions: ED Sinusitis Abx Tx Prescriptions: Amox/Clav 875/125 [Augmentin 875/125 Tab] 1 tablet PO Q12H 7 Days #14 tablet Comments: There were no concerning findings on the CT scan of your head although there were findings consistent with mild sinusitis. You were given the first dose of an antibiotic (Augmentin) in the emergency department for sinusitis, and I electronically submitted a prescription for a one-week course of the antibiotic to the [facility] pharmacy in [place]. Contact your primary care provider's office this morning to arrange for the next available appointment for reevaluation/follow-up. Forms: PCP List Discharge Date/Time: 08/29/23 07:49
[2023-08-29] MEDS: AMOX/CLAV 875 MG/125 MG TABLET PO STA (07:45)
[2023-08-29 07:53] VITALS: BP 158/76; O2SAT 96
--- NOTE | 2023-08-29 08:06 | CT Report ---
PROCEDURE: Head WO INDICATIONS: headache TECHNIQUE: Noncontrast 4.5 mm thick angled axial sections acquired from the foramen magnum to the vertex. For r adiation dose reduction, the following was used: automated exposure control, adjustment of mA and/or kV according to patient size. COMPARISON: None. FINDINGS: Image quality: Excellent. CSF spaces: Basal cisterns are patent. No extra-axial fluid collections. Ventricles are normal in size and shape. Brain: No midline shift. No intracranial masses or hemorrhage. Perez-white matter interface is norm al. Intracranial carotid calcifications. Age-related volume loss and mild, age-appropriate small ves thierry ischemic change. Skull and face: Calvarium and visualized facial bones are intact, without suspicious lesions. Sinuses: Visualized sinuses and mastoids are clear. IMPRESSION: Negative head CT for patient age. No acute intracranial pathology. Findings are concordant with preliminary interpretation provided by [facility]. Reviewed by: Artie Spencer MD on 08/29/2023 8:05 AM PDT Approved by: Artie Spencer MD on 08/29/2023 8:05 AM PDT Station ID: [id number]
== END 2023-08-29 07:49 | disposition home or self-care (01) ==
LOC: ED 05:32
DX: J32.9 Chronic sinusitis, unspecified (principal)
CPT/HCPCS: 70450; 99283; 99284; A9270

== ENCOUNTER 2024-11-05 11:04 | Observation (INO) ==
--- NOTE | 2024-11-05 11:24 | ED Physician Documentation ---
PD HPI DYSPNEA Stated complaint Stated Complaint: SOA Chief complaint Chief Complaint: Resp History obtained from History obtained from: Patient Additional information Additional information: 83-year-old female with history of asthma presents with shortness of breath for a few days. She has had occasional cough, some sputum production but not a whole lot, and has had increasing shortness of breath and wheezing. She has been using albuterol and nebs at home without relief. EMS gave 1 Atrovent and 2 albuterol. She continues to feel short of breath is somewhat improved. She has not had a fever to her knowledge, denies any chest pain, no lower extremity swelling. No known sick contacts though her daughter is currently going through cancer treatment and she sits with her during her weekly infusions at the hospital. Patient has no history of smoking, does relate at history of secondhand smoke exposure and she herself smoked for about 3 months about 60 years ago but quickly stopped the habit. Meds/Allgy Home Medications Ambulatory Orders Medication Instructions Recorded Confirmed albuterol sulfate 90 mcg/actuation See Rx Instructions .Route 04/14/24 11/05/24 aerosol inhaler .COMPLEX #9 grams ipratropium 0.5 mg-albuterol 3 mg See Rx Instructions .Route 08/22/24 11/05/24 (2.5 mg base)/3 mL nebulization .COMPLEX #90 mL soln losartan 25 mg tablet 25 mg PO DAILY 11/05/2410/25 Allergies Allergies Allergy/AdvReac Type Severity Reaction Status Date / Time acetaminophen (From Vicodin) AdvReac Anxiety Verified 11/05/24 11:14 hydrocodone bitartrate * AdvReac Anxiety Verified 11/05/24 11:14 (From Vicodin) PFSH Active Problems All Active Problems (Updated 11/05/24 @ 14:38 by NUSRAT Boothe) Hypertension (Acute) Yeast dermatitis (Acute) Asthma (Acute) Medical History Medical History (Updated 11/05/24 @ 14:38 by NUSRAT Boothe) Asthma Social History Social History Smoking Status: Never smoker Do you dip or chew tobacco?: No Do you vape?: No Living arrangement: At home Relationship: Level: Independent Do you feel safe in your home environment?: Yes Suffered physical, verbal, emotional, or financial abuse?: No History of Abuse: No POLST Patient has POLST: No Exam Exam Vital Signs: Vital Signs x48h Pulse Resp BP Pulse Ox 11/05/24 13:00 104 H 20 130/77 90 L 11/05/24 12:24 90 22 Constitutional normal general appearance, no apparent distress, average body habitus, no limitations and alert Respiratory breath sounds unequal, abnormal respiratory effort and wheezing noted Bilateral expiratory wheezes and rhonchi, mildly tachypneic with mild increase in respiratory effort. Talking in full sentences however. Cardiovascular normal heart rate noted, regular rhythm noted, peripheral pulses 2+ throughout and no edema Gastrointestinal abdomen normal to inspection, abdomen soft to palpation, nondistended and normoactive bowel sounds Skin skin color normal and no rash Results Vitals Vitals: Vital Signs - 24 hr 11/05/24 11:11 11/05/24 11:20 11/05/24 12:24 Temperature 36 C L Temperature Source Temporal Artery Scan Pulse Rate 94 100 90 Respiratory Rate 20 20 22 Blood Pressure 133/72 H 134/69 H O2 Saturation 93 91 L O2 Source Room air Room air Pain Intensity 0 11/05/24 13:00 Temperature Temperature Source Pulse Rate 104 H Respiratory Rate 20 Blood Pressure 130/77 O2 Saturation 90 L O2 Source Room air Pain Intensity Oxygen O2 Source Room air Labs Labs: Laboratory Tests 11/05/24 11/05/24 11:32 13:12 WBC 6.7 RBC 4.03 L Hgb 13.1 Hct 40.1 MCV 99.5 H MCH 32.5 H MCHC 32.7 RDW 11.8 L Plt Count 225 MPV 8.9 Neut # (Auto) 3.4 Lymph # (Auto) 2.0 [place] # (Auto) 0.7 Eos # (Auto) 0.5 Baso # (Auto) 0.1 Absolute Nucleated RBC 0.00 Nucleated RBC % 0.0 Sodium 139 Potassium 3.7 Chloride 106 Carbon Dioxide 25 Anion Gap 8.0 BUN 13 Creatinine 0.8 Estimated GFR (MDRD) 68 L Glucose 111 H Calcium 9.1 Total Bilirubin 0.8 AST 17 ALT 11 Alkaline Phosphatase 56 B-Natriuretic Peptide 57 Total Protein 6.7 Albumin 4.0 Globulin 2.7 Albumin/Globulin Ratio 1.5 Nasal Adenovirus (PCR) NOT DETECTED Nasal B. parapertussis DNA (PCR) NOT DETECTED Nasal Coronavir 229E PCR NOT DETECTED Nasal Coronavir HKU1 PCR NOT DETECTED Nasal Coronavir NL63 PCR NOT DETECTED Nasal Coronavir OC43 PCR NOT DETECTED Nasal Enterovir/Rhinovir PCR NOT DETECTED Nasal Influenza B PCR NOT DETECTED Nasal Influenza A PCR NOT DETECTED Nasal Parainfluen 1 PCR NOT DETECTED Nasal Parainfluen 2 PCR NOT DETECTED Nasal Parainfluen 3 PCR NOT DETECTED Nasal Parainfluen 4 PCR NOT DETECTED Nasal RSV (PCR) NOT DETECTED Nasal B.pertussis DNA PCR NOT DETECTED Nasal C.pneumoniae (PCR) NOT DETECTED René Human Metapneumo PCR NOT DETECTED Nasal M.pneumoniae (PCR) NOT DETECTED Nasal SARS-CoV-2 (PCR) NOT DETECTED Rads (name of study) chest xray: Relevant Findings:: Final report received PD Medical Decision Making ED course Complexity details: reviewed results and d/w patient ED course: 83-year-old female presented with several days of increasing shortness of breath, wheezing, occasional cough despite using her home inhalers and nebulizers. Here, she arrived tachypneic with increased work of breathing, she has diffuse expiratory wheezes and tachycardia. There is no sign of acute CHF on exam I suspect this is a asthma or COPD exacerbation, so considered pneumonia or viral illness. The patient had received multiple DuoNebs prior to arrival both at home and in the ambulance and that I gave an additional 5 mg of albuterol nebulized, and 125 mg of Solu-Medrol. There was some modest improvement but she continued to be feet diffusely wheezy and rhonchorous, and had increased work of breathing with mild accessory muscle use. Her resting ox ygen saturation hovered between 90 and 91%, ambulatory sat was 89% though she was diffusely short of breath with minimal while activity. Chest x-ray negative, respiratory pathogen panel negative, labs generally stable, no leukocytosis, CMP reassuring. I discussed recommendation for admission with the patient and she is quite anxious about this because her daughter is currently undergoing cancer treatment and she wants to assist her but she is also very nervous to return home. After discussion with with her family she has decided to stay overnight for observation given ongoing increased work of breathing and diffuse wheezing. I have spoken with the hospitalist Luis who very kindly agreed to admit this patient. Discharge Plan Discharge Patient Disposition: ED Place in Observation Clinical Impression: Asthma Qualifiers: Asthma severity: unspecified severity Asthma persistence: unspecified Asthma complication type: with acute exacerbation Qualified Code(s): J45.901 - Unspecified asthma with (acute) exacerbation Interventions: ED Admission Assessment Last Done: 11/05/24 15:03
[2024-11-05 11:37] LABS: BASOPHILS # (AUTO) 0.1 10^3/uL (0.0-0.1); BASOPHILS % (AUTO) 1.3 %; EOSINOPHILS # (AUTO) 0.5 10^3/uL (0.0-0.7); EOSINOPHILS % (AUTO) 7.5 %; HCT - HEMATOCRIT 40.1 % (37.0-47.0); HGB - HEMOGLOBIN 13.1 g/dL (12.0-16.0); LYMPHOCYTES % (AUTO) 29.9 %; MEAN CORPUSCULAR HEMOGLOBIN 32.5 pg (27.0-31.0); MEAN CORPUSCULAR HGB CONC 32.7 g/dL (32.0-36.0); MEAN CORPUSCULAR VOLUME 99.5 fL (81.0-99.0); MEAN PLATELET VOLUME 8.9 fL (7.9-10.8); MONOCYTES # (AUTO) 0.7 10^3/uL (0.0-1.0); MONOCYTES % (AUTO) 10.6 %; NEUTROPHILS # (AUTO) 3.4 10^3/uL (1.5-6.6); NEUTROPHILS % (AUTO) 50.4 %; PLT - PLATELET COUNT 225 10^3/uL (130-450); RED BLOOD COUNT 4.03 10^6/uL (4.20-5.40); RED CELL DISTRIBUTION WIDTH 11.8 % (12.0-15.0); WHITE BLOOD COUNT 6.7 x10^3/uL (4.8-10.8)
--- OUTSIDE RECORDS SUMMARY | 2024-11-05 11:37 | EXTERNAL MEDICAL SUMMARY RPT | Continuity of Care Document ---
Author Organization [facility] Address [address] [place] [id number] Phone Problems date description facility 2024-09-24 11:08 Shortness of breath [facility] 2024-09-25 09:40 Candidiasis of skin [facility] 2024-09-25 09:40 Unspecified asthma, uncomplicat ed [facility] 2024-10-01 09:07 Candidiasis of skin and nail [facility] 2024-10-01 09:07 Essential (primary) hypertensio n [facility] 2024-10-01 09:07 Unspecified asthma, uncomplicat ed [facility] 2024-10-01 09:07 Other specified cough [facility] 2024-10-01 09:07 Shortness of breath [facility] 2024-10-05 11:38 Shortness of breath [facility] Results/Labs test date facility value unit notes Result panel 1 NUCLEATED RED BLOOD CELLS AUTO 2024-09-25 07:57 [facility] 0.0 /100wbc (missing) NRBC ABSOLUTE COUNT (AUTO) 2024-09-25 07:57 [facility] 0.00 x10 3/ul (missing) BASOPHILS # (AUTO) 2024-09-25 07:57 [facility] 0.1 10 3/ul (missing) EOSINOPHILS # (AUTO) 2024-09-25 07:57 [facility] 0.5 10 3/ul (missing) MONOCYTES # (AUTO) 2024-09-25 07:57 [facility] 0.7 10 3/ul (missing) CREATININE 2024-09-25 07:57 [facility] 0.8 mg/dl As of November 2022 testing method has changed, this may include reference ranges. BILIRUBIN,TOTAL 2024-09-25 07:57 [facility] 1.1 mg /dl As of November 2022 testing method has changed, this may include reference ranges. ALBUMIN/GLOBULIN RATIO 2024-09-25 07[facility] 1.4 (missing) (missing) CHLORIDE 2024-09-25 07:57 [facility] 103 mmol/l As of November 2022 testing method has changed, this may include reference ranges. ALT ALANINE AMINOTRANSFERASE 2024-09-25 07:57 [facility] 11 iu/l As of November 2022 testing method has changed, this may include reference ranges. RED CELL DISTRIBUTION WIDTH 2024-09-25 07:57 [facility] 11.6 % (missing) GLUCOSE 2024-09-25 07:57 [facility] 114 mg/dl As of November 2022 testing method has changed, this may include reference ranges. HGB - HEMOGLOBIN 2024-09-25 07:57 [facility] 13.4 g /dl (missing) SODIUM 2024-09-25 07:57 [facility] 138 mmol/l (missing) BUN - BLOOD UREA NITROGEN 2024-09-25 07:57 [facility] 14 mg/dl As of Nov testing method has changed, this may include reference ranges. AST ASPARTATE AMINOTRANSFERASE 2024-09-25 07:57 [facility] 15 iu/l As of November 2022 testing method has changed, this may include reference ranges. NEUTROPHILS # (AUTO) 2024-09-25 07:57 [facility] 2.1 10 3/ul (missing) LYMPHOCYTES # (AUTO) 2024-09-25 07:57 [facility] 2.4 10 3/ul (missing) VBG BASE EXCESS 2024-09-25 07:57 [facility] 2.6 mm ol/l (missing) VBG HCO3 2024-09-25 07:57 [facility] 26.3 mmol/l (missing) PLT - PLATELET COUNT 2024-09-25 07:57 [facility] 268 10 3/ul (missing) CARBON DIOXIDE - CO2 2024-09-25 07:57 [facility] 27 mmol/l As of November 2022 testing method has changed, this may include reference ranges. VBG TOTAL CO2 2024-09-25 07:57 [facility] 27.4 mmol /l (missing) GLOBULIN 2024-09-25 07:57 [facility] 3.0 g/dl (missing) POTASSIUM 2024-09-25 07:57 [facility] 3.9 mmol/l As of November 2022 testing method has changed, this may include reference ranges. MEAN CORPUSCULAR HEMOGLOBIN 2024-09-25 07:57 [facility] 32.2 pg (missing) MEAN CORPUSCULAR HGB CONC 2024-09-25 07:57 [facility] 32.4 g/dl (missing) VBG PCO2 2024-09-25 07:57 [facility] 35.2 mmhg (missing) ALBUMIN 2024-09-25 07:57 [facility] 4.1 g/dl As of November 2022 testing method has changed, this may include reference ranges. RED BLOOD COUNT 2024-09-25 07:57 [facility] 4.16 10 6/ul (missing) HCT - HEMATOCRIT 2024-09-25 07:57 [facility] 41.3 % (missing) VBG PO2 2024-09-25 07:57 [facility] 47.7 mmhg (missing) WHITE BLOOD COUNT 2024-09-25 07:57 [facility] 5.8 x10 3/ul (missing) ALKALINE PHOSPHATASE 2024-09-25 07:57 [facility] 56 iu/l As of November 2022 testing method has changed, this may include reference ranges. GFR - MDRD 2024-09-25 07:57 [facility] 68 (in g) Social History date description facility
[2024-11-05] MEDS: methylPREDNISolone SUCCINATE 125 MG/2 ML VIAL IVP STA (11:48)
[2024-11-05 11:55] LABS: ALBUMIN/GLOBULIN RATIO 1.5 (1.0-2.2); BILIRUBIN,TOTAL 0.8 mg/dL (0.2-1.0); CALCIUM 9.1 mg/dL (8.5-10.3); CREATININE 0.8 mg/dL (0.6-1.3); POTASSIUM 3.7 mmol/L (3.5-4.5); TOTAL PROTEIN 6.7 g/dL (6.4-8.9)
[2024-11-05] MEDS: ALBUTEROL NEB 2.5 MG/3 ML INH STA (12:20)
[2024-11-05 14:29] LABS: B. PARAPERTUSSIS- RESP PCR PAN NOT DETECTED; B. PERTUSSIS- RESP PCR PANEL NOT DETECTED; C. PNEUMONIAE- RESP PCR PANEL NOT DETECTED; CORONAVIRUS 229E-RESP PCR NOT DETECTED; CORONAVIRUS HKU1-RESP PCR NOT DETECTED; CORONAVIRUS NL63-RESP PCR NOT DETECTED; CORONAVIRUS OC43-RESP PCR NOT DETECTED; HUMAN METAPNEUMOVIRUS NOT DETECTED; INFLUENZA A- RESP PCR PANEL NOT DETECTED; INFLUENZA B - RESP PCR PANEL NOT DETECTED; M. PNEUMONIAE- RESP PCR PANEL NOT DETECTED; PARAINFLUENZA VIRUS 1 NOT DETECTED; PARAINFLUENZA VIRUS 2 NOT DETECTED; PARAINFLUENZA VIRUS 4 NOT DETECTED; RHINOVIRUS/ENTEROVIRUS NOT DETECTED; RSV- RESP PCR PANEL NOT DETECTED; SARS-CoV-2 -RESP PCR PANEL NOT DETECTED
[2024-11-05] MEDS ORDERED: ALBUTEROL NEB 2.5 MG/3 ML INH PRN (14:45)
[2024-11-05] MEDS ORDERED: ACETAMINOPHEN 325 MG TABLET PO PRN (15:02)
[2024-11-05] MEDS ORDERED: ONDANSETRON 4 MG/2 ML VIAL IVP PRN (15:02)
[2024-11-05] MEDS ORDERED: SODIUM CHLORIDE FLUSH 0.9% 10 ML SYRINGE IVP PRN (15:02)
[2024-11-05] MEDS ORDERED: ONDANSETRON ODT 4 MG TABLET TL PRN (15:02)
--- NOTE | 2024-11-05 15:42 | PHARMACY PROGRESS NOTE ---
Best Possible Medication History Admit Date and Time: 11/05/24 310908 Home Medications Medication Instructions Recorded Confirmed Type albuterol sulfate 90 mcg/actuation See Rx Instructions .Route 04/14/24 11/05/24 Rx aerosol inhaler .COMPLEX #9 grams ipratropium 0.5 mg-albuterol 3 mg See Rx Instructions .Route 08/22/24 11/05/24 Rx (2.5 mg base)/3 mL nebulization .COMPLEX #90 mL soln losartan 25 mg tablet 25 mg PO DAILY 11/05/2410/25 History Processed by: Pharmacy ([employer]) Medications reviewed in ED?: No Medication History completed: Yes Patient Interview: Completed Secondary Source(s): Prescription bottles and Insurance records [facility] Statement: As the person ultimately responsible for medication therapy, providers are able to order a medication from an existing home medication list in [facility] via the "Reconcile Routine" prior to Confirmation of that medication by information support project manager. Such practice is discouraged except when the physician, in their clinical judgment, deems that a medical need exists for a medication without regard to previous use.
--- NOTE | 2024-11-05 15:47 | HISTORY & PHYSICAL EXAMINATION ---
History of Present Illness History of Present Illness HPI Comment/Other: 83-year-old female PMH asthma and hypertension who presents to the ER with worsening dyspnea over the past week. She reports [place] was [place], and she typically manages with only a as needed albuterol. She reports she was on an inhaled steroid at 1 point, but took herself off of it. She reports worsening dyspnea and wheezes with occasional minimally productive cough over the past week. She is attempted to alleviate this with her albuterol inhaler and has only been minimally effective In the ER, Workup was overall unremarkable. Respiratory panel negative. Chest x-ray with no gross abnormalities on wet read. She received several doses of nebulized albuterol as well as a dose of Solu-Medrol IV and still had significant dyspnea with accessory muscle use, so hospitalist was contacted for observation for asthma exacerbation Meds/Allgy Home Medications Ambulatory Orders Medication Instructions Recorded Confirmed albuterol sulfate 90 mcg/actuation See Rx Instructions .Route 04/14/24 11/05/24 aerosol inhaler .COMPLEX #9 grams ipratropium 0.5 mg-albuterol 3 mg See Rx Instructions .Route 08/22/24 11/05/24 (2.5 mg base)/3 mL nebulization .COMPLEX #90 mL soln losartan 25 mg tablet 25 mg PO DAILY 11/05/2410/25 Allergies Allergies Allergy/AdvReac Type Severity Reaction Status Date / Time acetaminophen (From Vicodin) AdvReac Anxiety Verified 11/05/24 11:14 hydrocodone bitartrate * AdvReac Anxiety Verified 11/05/24 11:14 (From Vicodin) PFSH Active Problems All Active Problems (Updated 11/05/24 @ 14:38 by NUSRAT Boothe) Hypertension (Acute) Yeast dermatitis (Acute) Asthma (Acute) Medical History Medical History (Updated 11/05/24 @ 14:38 by NUSRAT Boothe) Asthma Social History Social History Smoking Status: Never smoker Do you dip or chew tobacco?: No Do you vape?: No Living arrangement: At home Relationship: Level: Independent Do you feel safe in your home environment?: Yes Suffered physical, verbal, emotional, or financial abuse?: No History of Abuse: No POLST Patient has POLST: No Review of Systems Status of ROS: 10 or more systems reviewed and unremarkable except as noted in history and below Constitutional Denies: Fever or Chills Cardiovascular Reports: shortness of breath with exertion; Denies: Irregular heart rate, chest pain or palpitations Respiratory Reports: Shortness of breath, Cough, Sputum production (Occasional slight) and Wheezing Gastrointestinal Denies: Abdominal pain Genitourinary Denies: Painful urination Allergic/Immunologic Reports: Wheezing Exam Exam Vital Signs: Vital Signs x48h Temp Pulse Pulse Resp BP BP Pulse Ox 11/05/24 16:00 36.6 C 105 H 16 152/77 H 93 11/05/24 15:57 90 22 11/05/24 14:58 103 H 18 150/71 H 93 11/05/24 13:00 104 H 20 130/77 90 L 11/05/24 12:24 90 22 11/05/24 11:20 100 20 134/69 H 91 L 11/05/24 11:11 36 C L 94 20 133/72 H 93 O2 Flow Rate 11/05/24 16:00 1 11/05/24 15:57 1 11/05/24 14:58 2 11/05/24 13:00 11/05/24 12:24 11/05/24 11:20 11/05/24 11:11 Constitutional Elderly appearing female in no acute distress. Audible wheezing with deep breathing HENMT normocephalic and head/scalp atraumatic Eyes EOMs intact bilaterally Neck/C-Spine visual inspection normal Lymph no lymphadenopathy noted Chest inspection of chest normal Respiratory breath sounds equal bilaterally and wheezing noted Cardiovascular normal heart rate noted, regular rhythm noted and murmur noted Gastrointestinal abdomen normal to inspection Extremities normal to inspection Neurology GCS 15 Psychiatry oriented x3 Skin skin color normal Conclusion/Plan Problem List (1) Asthma: Plan: She has a history of asthma, normally managed with as needed albuterol and DuoNeb. Chest x-ray clear, no sputum production, no fever/chills DuoNeb RT 4 times daily Albuterol every 4 hours as needed Pulmicort twice daily Prednisone 40 mg p.o. daily RT bronchodilator protocol/lung inflation protocol Qualifiers: Asthma complication type: with acute exacerbation Asthma persistence: u nspecified Asthma severity: unspecified severity Qualified Code(s): J45.901 - Unspecified asthma with (acute) exacerbation (2) Hypertension: Plan: Restarting home dose losartan 25 mg p.o. daily Plan Placed in observation Full code Her daughter is her surrogate decision maker Lab Results Lab results reviewed: Yes 11/05/24 11:32 11/05/24 11:32 Core Measures Anticipated LOS I expect patient to be DC'd or transferred within 96 hours.: Yes DVT/VTE - Prophylaxis VTE/DVT Prophylaxis med ordered at admit?: Yes
[2024-11-05] MEDS: IPRATROPIUM/ALBUTEROL 3 ML NEB INH SCH (15:53)
[2024-11-05] MEDS: SODIUM CHLORIDE FLUSH 0.9% 10 ML SYRINGE IVP SCH (18:12)
[2024-11-05] MEDS: BUDESONIDE 0.5 MG/2 ML NEB INH SCH (20:25)
[2024-11-06 06:04] LABS: BASOPHILS % (AUTO) 0.2 %; HCT - HEMATOCRIT 35.5 % (37.0-47.0); HGB - HEMOGLOBIN 11.7 g/dL (12.0-16.0); LYMPHOCYTES # (AUTO) 1.2 10^3/uL (1.5-3.5); LYMPHOCYTES % (AUTO) 12.7 %; MEAN CORPUSCULAR HEMOGLOBIN 32.6 pg (27.0-31.0); MEAN CORPUSCULAR VOLUME 98.9 fL (81.0-99.0); MEAN PLATELET VOLUME 9.4 fL (7.9-10.8); MONOCYTES # (AUTO) 0.8 10^3/uL (0.0-1.0); MONOCYTES % (AUTO) 8.8 %; NEUTROPHILS # (AUTO) 7.1 10^3/uL (1.5-6.6); NEUTROPHILS % (AUTO) 77.7 %; PLT - PLATELET COUNT 221 10^3/uL (130-450); RED BLOOD COUNT 3.59 10^6/uL (4.20-5.40); RED CELL DISTRIBUTION WIDTH 11.9 % (12.0-15.0); WHITE BLOOD COUNT 9.1 x10^3/uL (4.8-10.8)
[2024-11-06 06:23] LABS: CALCIUM 8.8 mg/dL (8.5-10.3); CREATININE 0.7 mg/dL (0.6-1.3)
[2024-11-06] MEDS: ENOXAPARIN 40 MG/0.4 ML SYRINGE SUBQ SCH (08:11)
[2024-11-06] MEDS: predniSONE 20 MG TABLET PO SCH (08:11)
[2024-11-06] MEDS: LOSARTAN 50 MG TABLET PO SCH (08:12)
[2024-11-06] MEDS: MULTIVITAMIN W/MINERALS TABLET PO SCH (12:44)
--- NOTE | 2024-11-06 16:18 | ECHO Report ---
Version: 1 Study ID: [id number] [id number] Adult Echocardiogram Report Name: ESTRADA BAEZ Study Date: 11/06/2024, 11: 34 AM BP: 148 / 82 mmHg [place] [facility] [id number]01 HR: 100 bpm : 1940 (MM/DD/YYYY) Gender: Female Height: 60 in Age: 83 Years Weight: 135.584 lb Reason For Study: sob, eval for , CHF, etc History: sob, eval for , CHF, etc Procedure: A complete two-dimensional transthoracic echocardiogram was performed (2D, M- mode, Doppler and color flow Doppler). Indication: Evaluate cardiac and valve function. The patient was comfortable and cooperative throughout the procedure. The study was done with the patient in the supine position, due to inability to lie on the left side. The underlying rhythm was sinus tachycardia. Interpretation Summary The left ventricle is normal in size. The visual left ventricular ejection fraction is estimated at 65 to 70%. The right ventricle is normal size. The right ventricular systolic function is normal. Mild tricuspid regurgitation present. Left Ventricle: The left ventricle is normal in size. There is normal left ventricular wall thickness. Global left ventricular systolic function is normal. The visual left ventricular ejection fraction is estimated at 65 to 70%. No regional wall motion abnormalities are present. Diastolic function could not be accurately assessed due to merging Doppler signals. Right Ventricle: The right ventricle is normal size. The basal right ventricular diameter measured from a right ventricular focused view is 3.8 cm. The tricuspid annular plane systolic excursion (TAPSE) measurement is 2.3 cm. TAPSE is consistent with normal right ventricular function. The right ventricular systolic function is normal. Aortic Valve: The aortic valve is trileaflet. The aortic valve is mildly thickened. Aortic valve sclerosis is present without stenosis. Trace aortic regurgitation is present. Mitral Valve: The mitral valve leaflets appear thickened, but with normal motion. No evidence of mitral stenosis is seen. There is trace mitral regurgitation. Tricuspid Valve: The tricuspid valve is normal in structure and function. Mild tricuspid regurgitation present. Pulmonic Valve: The pulmonic valve is not well seen. Left Atrium: The left atrial size is normal. The left atrial volume indexed to body surface area is 31 ml/m2. This refers to the maximal volume measured prior to mitral valve opening. Right Atrium: Right atrial size is normal. The inferior vena cava is normal in diameter (<2.1cm) and collapses >50% with sniff (estimated right atrial pressure 0-5mmHg). Atrial Septum: Lipomatous hypertrophy of the interatrial septum is present. The interatrial septum appears intact, without evidence of shunt by 2D imaging and color Doppler. Aorta: The ascending aorta is not well seen. The sinuses of Valsalva are not well visualized. Pulmonary Artery: The pulmonary artery systolic pressure, calculated from a peak tricuspid regurgitant velocity in conjunction with an estimated right atrial pressure, is 26 - 31mmHg. Pericardium/Pleural Space: There is no pericardial effusion. CPT Codes: 92854/[id number]: Transthoracic Echo with Spectral and Color Doppler. Doppler Measurements & Calculations Ao max P.5 mmHg Ao V2 max: 145.7 cm/sec LV V1 max: 123.2 cm/sec LV V1 max P.1 mmHg LV V1 mean: 87.7 cm/sec LV V1 mean P.5 mmHg LV V1 VTI: 20.9 cm MV A max marilyn: 86.7 cm/sec MV dec time: 0.21 sec MV DVI-pr: 0.64 MV E max marilyn: 55.1 cm/sec PA max P.9 mmHg PA V2 max: 99.1 cm/sec RAP systole: 5.0 mmHg TR max P.4 mmHg TR max marilyn: 257.1 cm/sec MMode/2D Measurements & Calculations EF (est.): 66.7 % ESV(sp4-el): 49.2 ml Heart Rate: 100.0 BPM Height (metric): 152.4 cm IVSd: 0.79 cm LA A4C-A/L: 16.6 cm² LA dimension: 4.8 cm LA ESV-A/L: 46.8 ml LAV(MOD-sp2): 42.0 ml LAV(MOD-sp4): 45.1 ml LVIDd: 3.6 cm LVIDs: 2.27 cm LVPWd: 0.95 cm Systolic Pressure: 148.0 mmHg TAPSE: 2.31 cm Other Measurements & Calculations Ao V2 max: 145.7 cm/sec BMI: 26.5 kilograms/m² BSA: 1.58 m² BSA([facility]): 1.63 m² Diastolic Pressure: 82.0 mmHg EDV(Teich): 53.0 ml EF (est.): 66.7 % EF(Teich): 66.7 % ESV(sp4-el): 49.2 ml ESV(Teich): 17.6 ml FS: 36.1 % Heart Rate: 100.0 BPM Height (metric): 152.4 cm IVSd: 0.79 cm LA A4C-A/L: 16.6 cm² LA dimension: 4.8 cm LA ESV-A/L: 46.8 ml LAV(MOD-sp2): 42.0 ml LAV(MOD-sp4): 45.1 ml LV V1 max: 123.2 cm/sec LV V1 mean: 87.7 cm/sec LV V1 mean P.5 mmHg LVIDd: 3.6 cm LVIDs: 2.27 cm LVPWd: 0.95 cm MV A max marilyn: 86.7 cm/sec MV dec time: 0.21 sec MV DVI-pr: 0.64 MV E max marilyn: 55.1 cm/sec MV E/A: 0.64 PA max P.9 mmHg PA V2 max: 99.1 cm/sec RAP systole: 5.0 mmHg RVSP(TR): 31.4 mmHg Systolic Pressure: 148.0 mmHg TAPSE: 2.31 cm TR max P.4 mmHg TR max marilyn: 257.1 cm/sec TV max P.4 mmHg Weight (metric): 61.5 kg Lat E/e': 4.3 Med E/e': 8.7 EF(sp-el): 50.0 % Hyun Johnson MD 11/06/2024, 4: 17 PM Ordering Physician: Miguel Lemus Referring Physician: Lashae Lopez Performed By: Latesha Vo RDCS
--- NOTE | 2024-11-06 17:23 | Discharge Summary ---
Discharge Summary Admit Date: 11/05/24 Discharge Date: 11/06/24 Discharging Provider: Dr Miguel Lemus MD DIAGNOSES Admission Diagnoses: Asthma HTN Discharge Diagnoses with Status of Each Condition: Asthmaimproved Hypertensionstable HPI History of Present Illness: 83-year-old female PMH asthma and hypertension who presents to the ER with worsening dyspnea over the past week. She reports [place] and she typically manages with only a as needed albuterol. She reports she was on an inhaled steroid at 1 point, but took herself off of it. She reports worsening dyspnea and wheezes with occasional minimally productive cough over the past week. She is attempted to alleviate this with her albuterol inhaler and has only been minimally effective In the ER, Workup was overall unremarkable. Respiratory panel negative. Chest x-ray with no gross abnormalities on wet read. She received several doses of nebulized albuterol as well as a dose of Solu-Medrol IV and still had significant dyspnea with accessory muscle use, so hospitalist was contacted for observation for asthma exacerbation HOSPITAL COURSE Hospital Course: The patient was admitted to the medical floor where she was treated in routine fashion for asthma exacerbation including methylprednisolone followed by prednisone in the morning as well as scheduled DuoNeb nebulizer treatment and as needed albuterol. She was able to quickly wean off of oxygen by the following morning after admission and was subjectively feeling better. She did not have any significant wheezing on her exam on the day of discharge nor did she endorse any subjective shortness of breath. Given that she was on room air and not dyspneic or demonstrating any tachypnea or increased work of breathing, from an asthma perspective she was deemed to be medically safe for discharge. Of note, a few items were discussed with the patient. With respect to her asthma, I did discuss with her how exactly the diagnosis of asthma was made. She states that she was not asthmatic as a child and that she had been diagnosed some 20 years earlier, in her 60s. She states this was diagnosed primarily by her providing the history of shortness of breath and she was subsequently given albuterol inhalers but she does not recall ever having pulmonary function testing, or referrals to guest services officer. When I asked her if she felt any better after the breathing treatments or she normally felt better after albuterol inhalers she replied in the negative. I discussed with her that there are multiple reasons why patients can have shortness of breath including asthma, COPD, congestive heart failure, aortic stenosis, chronic anemia, etc. I recommended that we try to pursue other possibilities and confirm whether or not she does not fact have asthma. As part of this I ordered an echocardiogram which fortunately came back with essentially normal results. I recommended that she seek outpatient pulmonary function testing to confirm whether or not asthma is the correct diagnosis. Also, I informed her that if asthma is in fact the correct diagnosis, by definition if she is using her albuterol inhaler twice a day every day, which is what she was doing prior to admission, then her asthma is not well-controlled. As such, I prescribed for her Advair. Because she had requested once daily administration I ordered at the 550 dose so that she could have once daily dosing. I also gave her prescription for 4 more days of prednisone 40 mg daily and Singulair. With respect to her hypertension, she reported that she felt like her blood pressure medication made her feel loopy, and lightheaded. I reviewed the blood pressure goals for 83-year-old female's and explained to her that her target blood pressure is higher than it would be for somebody under the age of 75. As such, I reviewed her blood pressure log with her and throughout the hospital stay she did not have any blood pressures over 155 systolic and most of her blood pressures were in the 120-130 range sytolic. She did receive losartan 25 mg in the morning, but I did explain to her the value of ambulatory blood pressure monitoring with a 2-week diary. I suggested that she hold off on the losartan for now, given that she is experiencing side effects with it and keep a blood pressure log. I recommend she take this blood pressure log to PCP appointment in 2 weeks to determine if in fact she even needs blood pressure medications and if so, to optimize the dose and exactly which medication to take. ALLERGIES Allergies Allergy/AdvReac Type Severity Reaction Status Date / Time acetaminophen (From Vicodin) AdvReac Anxiety Verified 11/05/24 11:14 hydrocodone bitartrate * AdvReac Anxiety Verified 11/05/24 11:14 (From Vicodin) MEDICATIONS Ambulatory Orders Medication Instructions Recorded Confirmed ipratropium 0.5 mg-albuterol 3 mg See Rx Instructions .Route 08/22/24 11/05/24 (2.5 mg base)/3 mL nebulization .COMPLEX #90 mL soln losartan 25 mg tablet 25 mg PO DAILY 11/05/2410/25 Held on 11/06/24. Instructions: Resume on 11/20/24. Please keep a blood pressure log and record your blood pressures 2-3 times per day over 2 weeks, and when you see your new doctor so that to them so they can make a decision about whether or not you need blood pressure medication and if so exactly what and how much. albuterol sulfate 90 mcg/actuation 2 puff inhalation Q 2H PRN 11/06/24 11/05/24 aerosol inhaler shortness of breath or wheez ing #9 grams fluticasone 500 mcg-salmeterol 50 1 inh inhalation PETER LY #60 ea 11/06/24 mcg/dose blistr powdr for inhalation (Advair Diskus) montelukast 10 mg tablet 10 mg PO DAILY #90 tabs 10/25 08/18 (Singulair) PHYSICAL EXAM AT DISCHARGE Vital Signs: Vital Signs x48h Temp Pulse Pulse Resp BP Pulse Ox O2 Flow Rate 11/06/24 15:45 80 18 11/06/24 15:32 37.1 C 113 H 18 154/80 H 93 11/06/24 13:00 36.6 C 114 H 18 147/74 H 95 11/06/24 12:42 80 20 1 11/06/24 09:57 1 General Appearance: positive No acute distress and Alert Respiratory: positive No respiratory distress and Breath sounds nml; negative Wheezes Cardiovascular: positive Regular rate & rhythm, No murmur and No gallop Abdomen: positive Non-tender, No organomegaly, Nml bowel sounds and No distention Skin: positive Color nml Extremities: positive Nml appearance Neurologic/Psychiatric: positive Oriented x3, CN's nml (2-12) and Motor nml LABS 11/06/24 05:32 11/06/24 05:32 DIAGNOSTIC IMAGING Diagnostic Imaging Results: Final report reviewed TIME SPENT Time Spent in Discharge (Minutes): 65 Discharge Plan Discharge Patient Disposition: 01 Home, Self Care Medically Cleared Date:: 11/06/24 Prescriptions: New montelukast [Singulair] 10 mg tablet 10 mg PO DAILY Qty: 90 0RF fluticasone propion-salmeterol [Advair Diskus] 500-50 mcg/dose blister with device 1 inh inhalation DAILY Qty: 60 0RF Continued ipratropium-albuterol 0.5 mg-3 mg(2.5 mg base)/3 mL solution for nebulization See Rx Instructions .ROUTE .COMPLEX Qty: 90 1RF Dose Instruction: USE 1 AMPULE IN NEBULIZER EVERY 4 TO 6 HOURS DIRECTED NEEDED FOR ASTHMA Rx Instructions: USE 1 AMPULE IN NEBULIZER EVERY 4 TO 6 HOURS DIRECTED NEEDED FOR ASTHMA Changed albuterol sulfate 90 mcg/actuation HFA aerosol inhaler 2 puff inhalation Q2H PRN (Reason: shortness of breath or wheezing) Qty: 9 1RF Rx Instructions: 2 puffs inhaled; Held losartan 25 mg tablet 25 mg PO DAILY Hold Instructions: Resume on 11/20/24. Please keep a blood pressure log and record your blood pressures 2-3 times per day over 2 weeks, and when you see your new doctor so that to them so they can make a decision about whether or not you need blood pressure medication and if so exactly what and how much. Patient Comments: TAKE 1 TABLET BY MOUTH ONCE DAILY Diet: Regular Interventions: Belongings Inventory Last Done: 11/06/24 17:33 Discharge Last Done: 11/06/24 17:36 Discharge Checklist - Nursing Last Done: 11/06/24 17:36 Health Concerns: As we discussed you were admitted for shortness of breath and a presumed asthma exacerbation. I am glad to see you are doing better after getting breathing treatments as well as oral prednisone which is a type of steroid. As we discussed, I would like for you to discuss with your new PCP about getting proper pulmonary function testing to confirm the diagnosis of asthma. If in fact this is confirmed, then your asthma is not considered well-controlled because you normally utilize the albuterol inhaler twice a day every day. The idea would be to use this rarely. In order to achieve better control, you would benefit from being on a second inhaler use for daily maintenance. In this case I am sending a prescription for 1 of these called Advair. Because you requested a once daily regimen, I am sending the high dose so you only have to take it once a day instead of twice a day. In addition to this, I am sending a prescription for Singulair which will help with any asthma symptoms that are related to allergies. As far as your blood pressure is concerned, I will provide you with a printout of your blood pressures that you recorded while in the hospital. Based on the blood pressures shown here, your blood pressure is normal and does not need to be any lower than the values shown here. The medication we gave you is called losartan and you were given a 25 mg dose early this morning. I think your blood pressure is low enough that it would be safe to try to see how your blood pressure would respond if you hold, or temporarily stop taking, the losartan medication. Check your blood pressure 2-3 times a day and as long as your blood pressure is not higher than 170 or 180 on the top number or 95-110 on the bottom number, and you may not need the blood pressure medication at all. On the other hand, if it is higher than these numbers you may need to restart taking your losartan. I suggest you review a diary of your blood pressure readings over 2 weeks and take that to your PCP to determine what the best strategy is for managing your blood pressure. Remember, at 83 years of age your blood pressure does not have to be perfect. Even a blood pressure of 150 is considered safe because overtreating your blood pressure could cause the lightheadedness and dizziness that you are referring to and increase your risk of a fall and subsequent hip fracture or other injury. Print Language: Telugu Patient Instructions: Asthma Action Plan, Asthma Stand Alone Forms: PCP List
[2024-11-06 18:16] VITALS: BP 155/84; TEMP 97.9; O2SAT 92
--- NOTE | 2024-11-07 08:14 | XRAY Report ---
PROCEDURE: XR Chest 1V INDICATIONS: chest pain TECHNIQUE: One view of the chest was acquired. COMPARISON: 09/25/2024 FINDINGS: Surgical changes and devices: None. Lungs and pleura: No pleural effusions or pneumothorax. No consolidation. Mediastinum: Mediastinal contours appear normal. Heart size is normal. Bones and chest wall: No suspicious bony lesions. Overlying soft tissues appear unremarkable. IMPRESSION: No acute cardiopulmonary process. Reviewed by: Mannie Navarro MD on 11/07/2024 8:13 AM PDT Approved by: Mannie Navarro MD on 11/07/2024 8:13 AM PDT Station ID: [id number]
== END 2024-11-06 18:18 | disposition home or self-care (01) ==
LOC: MS2 11:04 → ED 11:04 → MS2 15:05
PROVIDERS: ADMIT Nurse Practitioner Acute Care; ATTEND Nurse Practitioner Acute Care
DX: I10 Essential (primary) hypertension; J45.901 Unspecified asthma with (acute) exacerbation